=== PATIENT | male | born 1940 | race Caucasian/White ===

== ENCOUNTER → 2016-08-11 | Outpatient (CLI) | payer MEDICARE, BC | LOC: MW.CHENT 08:00 | PROVIDERS: ATTEND Otolaryngology | DX: H61.20 Impacted cerumen, unspecified ear (principal); H93.8X9 Other specified disorders of ear, unspecified ear | CPT/HCPCS: 69210; 99201 ==

== ENCOUNTER 2018-08-26 14:23 | Observation (INO) | payer MEDICARE, BC ==
[2018-08-26] MEDS ORDERED: Sodium Chloride 0.9% 10 ML Syringe FLUSH PRN (14:36)
[2018-08-26] MEDS ORDERED: Sodium Chloride 0.9% 2.5 ML Syringe FLUSH PRN (14:36)
[2018-08-26] MEDS ORDERED: Sodium Chloride 0.9% 1,000 ML IV SCH (14:45)
--- NOTE | 2018-08-26 14:46 | CT ---
EXAMINATION: Non contrast CT head. Coronal and sagittal reformats. HISTORY: Stroke code Comparison: 11/25/2013. FINDINGS: No evidence of intra or extra axial hemorrhage, mass, midline shift, hydrocephalus or edema. There is moderate to severe generalized atrophy and ventricular prominence. Prominent periventricular white matter hypodensities also noted. No hypoattenuation changes in the major vascular territories to suggest acute infarct. No abnormal intracranial calcifications are detected. Mild vascular calcifications. Paranasal sinuses and mastoid air cells are well aerated without substantial findings. Pituitary fossa appears unremarkable. Orbits and globes are symmetric. Calvarium is intact. No evidence of skull fracture. IMPRESSION: 1. Advanced atrophy, small vessel ischemic changes, and ventricular prominence. 2. No definite acute intracranial findings. Above findings were called to the ER at 2:43 PM.
--- NOTE | 2018-08-26 14:47 | EDM.PDOC ---
ED HPI GENERAL MEDICAL PROBLEM - General Chief Complaint: Neurological Problem Stated Complaint: AMB Time Seen by Provider: 08/26/18 14:28 - History of Present Illness INITIAL COMMENTS - FREE TEXT/NARRATIVE: HISTORY AND PHYSICAL: History of present illness: Patient is an 78-year-old white male who normally ambulates with a walker or has to use a wheelchair who presents today after having been sleeping somewhat longer than normal and then upon waking Ambien assisted to a wheelchair seem to be listing to the right face subsequently stood the patient up and assisted him with his walker and he was unable to ambulate in the usual customary due to balance issues. Patient states he felt dizzy this seems to have resolved since arrival here he did come via paramedics he denies chest pain chart of breath or other concern is history is somewhat limited due to his baseline Review of systems: As per history of present illness and below otherwise all systems reviewed and negative. Past medical history: As per history of present illness and as reviewed below otherwise noncontributory. Surgical history: As per history of present illness and as reviewed below otherwise noncontributory. Social history: No reported history of drug or alcohol abuse. Family history: As per history of present illness and as reviewed below otherwise noncontributory. Physical exam: HEENT: Atraumatic, normocephalic, pupils reactive, negative for conjunctival pallor or scleral icterus, mucous membranes moist, throat clear, neck supple, nontender, trachea midline. Lungs: Clear to auscultation, breath sounds equal bilaterally, chest nontender. Heart: S1S2, regular, negative for clicks, rubs, or JVD. Abdomen: Soft, nondistended, nontender. Negative for masses or hepatosplenomegaly. Negative for costovertebral tenderness. Pelvis: Stable nontender. Genitourinary: Deferred. Rectal: Deferred. Extremities: Atraumatic, negative for cords or calf pain. Neurovascular unremarkable. Neuro: Awake, alert, follows commands moves all extremities limited but grossly nonfocal exam Diagnostics: CBC CMP troponin PT/INR chest x-ray EKG CT brain UA [employer]rapeutics: IV O2 monitor Impression: #1 dizziness #2 ataxia Definitive disposition and diagnosis as appropriate pending reevaluation and review of above. - Related Data Allergies Allergy/AdvReac Type Severity Reaction Status Date / Time No Known Allergies Allergy Verified 08/26/18 14:43 Home Meds: Home Meds Acetaminophen [Tylenol Extra Strength] 500 mg PO Q4H PRN 08/26/18 [History] Aspirin [Halfprin] 81 mg PO DAILY 08/26/18 [History] Calcitonin ([place]) [Miacalcin Nasal [place]] 1 spray NASLF Q2D 08/26/18 [History] Calcitonin ([place]) [Miacalcin Nasal [place]] 1 spray NASRT Q2D 08/26/18 [History] Carboxymethylcellulose Sodium [Refresh Plus 0.5%] 1 drop EYEBOTH Q8H PRN [History] Furosemide 40 mg PO BID@08,12 08/26/18 [History] Isosorbide Mononitrate [Imdur] 30 mg PO DAILY 08/26/18 [History] Levothyroxine 25 mcg PO ACBREAKFAST 08/26/18 [History] Metoprolol Tartrate 75 mg PO BID 08/26/18 [History] Multivitamin [Daily [place]] 1 tab PO DAILY 08/26/18 [History] Tamsulosin [Flomax] 0.4 mg PO QPM 08/26/18 [History] atorvaSTATin [Lipitor] 10 mg PO BEDTIME 08/26/18 [History] metFORMIN [Glucophage] 250 mg PO BIDMEALS 08/26/18 [History] ED ROS GENERAL - Review of Systems Review Of Systems: ROS reveals no pertinent complaints other than HPI. ED EXAM, GENERAL - Physical Exam Exam: See Below (The dictation) Course - Vital Signs Last Recorded V/S: Last Vital Signs Temp 36.5 C 08/26/18 14:38 Pulse 67 08/26/18 15:45 Resp 24 H 08/26/18 15:45 BP 121/70 08/26/18 15:45 Pulse Ox 97 08/26/18 15:45 - Orders/Labs/Meds Orders: Active Orders 24 hr Category Date Time Status Cardiac Monitoring [RC] . DIRECTED Care 08/26/18 14:30 Active EKG Documentation Completion [RC] STAT Care 08/26/18 14:30 Active Pulse Oximetry [RC] ASDIRECTED Care 08/26/18 14:30 Active Sodium Chloride 0.9% [Normal Saline] 1,000 ml Med 08/26/18 14:45 Active IV STAT Sodium Chloride 0.9% [Saline Flush] Med 08/26/18 14:36 Active 10 ml FLUSH ASDIRECTED PRN Sodium Chloride 0.9% [Saline Flush] Med 08/26/18 14:36 Active 2.5 ml FLUSH ASDIRECTED PRN Saline Lock Insert [OM.PC] Stat Oth 08/26/18 14:30 Ordered Medication Orders Sodium Chloride (Normal Saline) 1,000 mls @ 125 mls/hr IV STAT AMI Last Admin: 08/26/18 15:14 Dose: 125 mls/hr Sodium Chloride (Saline Flush) 10 ml FLUSH ASDIRECTED PRN PRN Reason: Keep Vein Open Sodium Chloride (Saline Flush) 2.5 ml FLUSH ASDIRECTED PRN PRN Reason: Keep Vein Open Labs: Laboratory Tests 08/26/18 08/26/18 08/26/18 Range/Units 15:05 15:05 15:05 WBC 9.56 (4.0-11.0) K/uL RBC 4.44 L (4.50-5.90) M/uL Hgb 14.6 (13.0-17.0) g/dL Hct 43.3 (38.0-50.0) % MCV 97.5 (80.0-98.0) fL MCH 32.9 H (27.0-32.0) pg MCHC 33.7 (31.0-37.0) g/dL RDW Std Deviation 48.1 (28.0-62.0) fl RDW Coeff of Juanita 13 (11.0-15.0) % Plt Count 198 (150-400) K/uL MPV 9.90 (7.40-12.00) fL Neut % (Auto) 67.2 (48.0-80.0) % Lymph % (Auto) 20.2 (16.0-40.0) % [place] % (Auto) 11.5 (0.0-15.0) % Eos % (Auto) 0.8 (0.0-7.0) % Baso % (Auto) 0.3 (0.0-1.5) % Neut # (Auto) 6.4 H (1.4-5.7) K/uL Lymph # (Auto) 1.9 (0.6-2.4) K/uL [place] # (Auto) 1.1 H (0.0-0.8) K/uL Eos # (Auto) 0.1 (0.0-0.7) K/uL Baso # (Auto) 0.0 (0.0-0.1) K/uL Nucleated RBC % 0.0 /100WBC Nucleated RBCs # 0 K/uL INR 1.00 Sodium 140 (136-148) mmol/L Potassium 4.4 (3.5-5.1) mmol/L Chloride 105 (98-107) mmol/L Carbon Dioxide 26.2 (21.0-32.0) mmol/L BUN 26 H (7.0-18.0) mg/dL Creatinine 1.1 (0.8-1.3) mg/dL Est Cr Clr Drug Dosing 50.08 mL/min Estimated GFR (MDRD) > 60.0 ml/min Glucose 161 H (74-106) mg/dL Calcium 9.0 (8.5-10.1) mg/dL Total Bilirubin 0.6 (0.2-1.0) mg/dL AST 15 (15-37) IU/L ALT 26 (14-63) IU/L Alkaline Phosphatase 85 (46-116) U/L Troponin I < 0.050 (0.000-0.056) ng/mL Total Protein 7.5 (6.4-8.2) g/dL Albumin 3.3 L (3.4-5.0) g/dL Globulin 4.2 H (2.6-4.0) g/dL Albumin/Globulin Ratio 0.8 L (0.9-1.6) TSH 3rd Generation 4.22 H (0.36-3.74) uIU/mL Urine Color Urine Appearance Urine pH (5.0-8.0) Ur Specific [place] (1.001-1.035) Urine Protein (NEGATIVE) mg/dL Urine Glucose (UA) (NEGATIVE) mg/dL Urine Ketones (NEGATIVE) mg/dL Urine Occult Blood (NEGATIVE) Urine Nitrite (NEGATIVE) Urine Bilirubin (NEGATIVE) Urine Urobilinogen (<2.0) EU/dL Ur Leukocyte Esterase (NEGATIVE) 08/26/18 Range/Units 15:38 WBC (4.0-11.0) K/uL RBC (4.50-5.90) M/uL Hgb (13.0-17.0) g/dL Hct (38.0-50.0) % MCV (80.0-98.0) fL MCH (27.0-32.0) pg MCHC (31.0-37.0) g/dL RDW Std Deviation (28.0-62.0) fl RDW Coeff of [place]ita (11.0-15.0) % Plt Count (150-400) K/uL MPV (7.40-12.00) fL Neut % (Auto) (48.0-80.0) % Lymph % (Auto) (16.0-40.0) % [place] % (Auto) (0.0-15.0) % Eos % (Auto) (0.0-7.0) % Baso % (Auto) (0.0-1.5) % Neut # (Auto) (1.4-5.7) K/uL Lymph # (Auto) (0.6-2.4) K/uL [place] # (Auto) (0.0-0.8) K/uL Eos # (Auto) (0.0-0.7) K/uL Baso # (Auto) (0.0-0.1) K/uL Nucleated RBC % /100WBC Nucleated RBCs # K/uL INR Sodium (136-148) mmol/L Potassium (3.5-5.1) mmol/L Chloride (98-107) mmol/L Carbon Dioxide (21.0-32.0) mmol/L BUN (7.0-18.0) mg/dL Creatinine (0.8-1.3) mg/dL Est Cr Clr Drug Dosing mL/min Estimated GFR (MDRD) ml/min Glucose (74-106) mg/dL Calcium (8.5-10.1) mg/dL Total Bilirubin (0.2-1.0) mg/dL AST (15-37) IU/L ALT (14-63) IU/L Alkaline Phosphatase (46-116) U/L Troponin I (0.000-0.056) ng/mL Total Protein (6.4-8.2) g/dL Albumin (3.4-5.0) g/dL Globulin (2.6-4.0) g/dL Albumin/Globulin Ratio (0.9-1.6) TSH 3rd Generation (0.36-3.74) uIU/mL Urine Color YELLOW Urine Appearance CLEAR Urine pH 6.0 (5.0-8.0) Ur Specific [place] 1.020 (1.001-1.035) Urine Protein NEGATIVE (NEGATIVE) mg/dL Urine Glucose (UA) NEGATIVE (NEGATIVE) mg/dL Urine Ketones NEGATIVE (NEGATIVE) mg/dL Urine Occult Blood NEGATIVE (NEGATIVE) Urine Nitrite NEGATIVE (NEGATIVE) Urine Bilirubin NEGATIVE (NEGATIVE) Urine Urobilinogen 0.2 (<2.0) EU/dL Ur Leukocyte Esterase NEGATIVE (NEGATIVE) Meds: Medications Generic Name Dose Route Start Last Admin Trade Name Freq PRN Reason Stop Dose Admin Sodium Chloride 1,000 mls @ 125 mls/hr 08/26/18 14:45 08/26/18 15:14 Normal Saline IV 125 mls/hr STAT AMI Administration Sodium Chloride 10 ml 08/26/18 14:36 Saline Flush FLUSH ASDIRECTED PRN Keep Vein Open Sodium Chloride 2.5 ml 08/26/18 14:36 Saline Flush FLUSH ASDIRECTED PRN Keep Vein Open Departure - Departure Time of Disposition: 16:29 Disposition: Home, Self-Care 01 Condition: Good Clinical Impression: Dizziness - Discharge Information Referrals: PCP,Unknown [Primary Care Provider] - Forms: ED Department Discharge - My Orders Last 24 Hours: My Active Orders 08/26/18 14:30 Cardiac Monitoring [RC] . DIRECTED EKG Documentation Completion [RC] STAT Pulse Oximetry [RC] ASDIRECTED Saline Lock Insert [OM.PC] Stat 08/26/18 14:36 Sodium Chloride 0.9% [Saline Flush] 10 ml FLUSH ASDIRECTED PRN Sodium Chloride 0.9% [Saline Flush] 2.5 ml FLUSH ASDIRECTED PRN 08/26/18 14:45 Sodium Chloride 0.9% [Normal Saline] 1,000 ml IV STAT - Assessment/Plan Last 24 Hours: My Active Orders 08/26/18 14:30 Cardiac Monitoring [RC] . DIRECTED EKG Documentation Completion [RC] STAT Pulse Oximetry [RC] ASDIRECTED Saline Lock Insert [OM.PC] Stat 08/26/18 14:36 Sodium Chloride 0.9% [Saline Flush] 10 ml FLUSH ASDIRECTED PRN Sodium Chloride 0.9% [Saline Flush] 2.5 ml FLUSH ASDIRECTED PRN 08/26/18 14:45 Sodium Chloride 0.9% [Normal Saline] 1,000 ml IV STAT
--- NOTE | 2018-08-26 15:17 | CR ---
EXAMINATION: Portable chest radiograph. HISTORY: Shortness of breath. FINDINGS: The trachea is midline. The cardiomediastinal silhouette is within normal limits. No pulmonary infiltrates, effusions or pneumothorax. Mild interstitial prominence, chronic. Median sternotomy wires are noted. Osseous structures appear unremarkable. IMPRESSION: No definite acute cardiopulmonary process.
[2018-08-26 15:45] LABS: CHLORIDE,CL 105 mmol/L (98-107); SODIUM,NA 140 mmol/L (136-148)
[2018-08-26] MEDS ORDERED: oxyCODONE 5 MG Tab PO PRN (17:07)
[2018-08-26] MEDS ORDERED: Ondansetron 4 MG Tab.DIS PO PRN (17:07)
[2018-08-26] MEDS ORDERED: Acetaminophen 325 MG Tab PO PRN (17:07)
[2018-08-26] MEDS ORDERED: Temazepam 15 MG Cap PO PRN (17:07)
[2018-08-26] MEDS ORDERED: Calcitonin (Salmon) Nasal Spray 3.7 ML Bottle NAS SCH (17:15)
--- NOTE | 2018-08-26 17:17 | PCM.HP ---
H&P History of Present Illness - General Date of Service: 08/26/18 Admit Problem/Dx: Admission Diagnosis/Problem Admission Diagnosis/Problem Dizziness Source of Information: Patient, Family History Limitations: Reports: Altered Mental Status - History of Present Illness Initial Comments - Free Text/Narative: The patient is an 78-year-old gentleman who presented to the emergency department with his out of concern for dizziness and lightheadedness. The patient also had been noted by his to be listing to one side and was unable to ambulate in his usual fashion. The patient denies any fall. Patient says that this came on suddenly. The patient has denied any fever or chills. No pain. The patient normally uses a walker at home or wheelchair when out and about. The patient has a history of diabetes mellitus type 2, hypertension, hypothyroidism and heart disease. These of all been stable for him. Onset of Symptoms: Reports: Sudden Duration of Symptoms: Reports: Hour(s):, Resolved Prior to Arrival Severity: Mild Improves with: Reports: None Worsens with: Reports: None Context: Reports: Sick Contact Associated Symptoms: Reports: No Other Symptoms - Related Data Allergies/Adverse Reactions: Allergies Allergy/AdvReac Type Severity Reaction Status Date / Time No Known Allergies Allergy Verified 08/26/18 14:43 Home Medications: Home Meds Acetaminophen [Tylenol Extra Strength] 500 mg PO Q4H PRN 08/26/18 [History] Aspirin [Halfprin] 81 mg PO DAILY 08/26/18 [History] Calcitonin ([place]) [Miacalcin Nasal [place]] 1 spray NASLF Q2D 08/26/18 [History] Calcitonin ([place]) [Miacalcin Nasal [place]] 1 spray NASRT Q2D 08/26/18 [History] Carboxymethylcellulose Sodium [Refresh Plus 0.5%] 1 drop EYEBOTH Q8H PRN [History] Furosemide 40 mg PO BID@08,12 08/26/18 [History] Isosorbide Mononitrate [Imdur] 30 mg PO DAILY 08/26/18 [History] Levothyroxine 25 mcg PO ACBREAKFAST 08/26/18 [History] Metoprolol Tartrate 75 mg PO BID 08/26/18 [History] Multivitamin [Daily Jordy] 1 tab PO DAILY 08/26/18 [History] Tamsulosin [Flomax] 0.4 mg PO QPM 08/26/18 [History] atorvaSTATin [Lipitor] 10 mg PO BEDTIME 08/26/18 [History] metFORMIN [Glucophage] 250 mg PO BIDMEALS 08/26/18 [History] Past Medical History HEENT History: Reports: Hard of Hearing Cardiovascular History: Reports: CAD, High Cholesterol Respiratory History: Reports: None Gastrointestinal History: Reports: None Genitourinary History: Reports: Urinary Incontinence Musculoskeletal History: Reports: None Neurological History: Reports: Headaches, Chronic, Vertigo, Other (See Below) ( memory defects) Psychiatric History: Reports: None Endocrine/Metabolic History: Reports: Other (See Below) Other Endocrine/Metabolic History: Borderline Diabetic Hematologic History: Reports: None Immunologic History: Reports: None Dermatologic History: Reports: None - Past Surgical History HEENT Surgical History: Reports: Cataract Surgery Cardiovascular Surgical History: Reports: Coronary Artery Bypass Social & Family History - Family History Family Medical History: Noncontributory - Tobacco Use Smoking Status *Q: Never Smoker - Alcohol Use Alcohol Use History: No - Recreational Drug Use Recreational Drug Use: No - Living Situation & Occupation Living situation: Reports: , with Spouse Occupation: Retired H&P Review of Systems - Review of Systems: Review Of Systems: See Below General: Reports: Weakness HEENT: Reports: Vertigo Pulmonary: Reports: No Symptoms Cardiovascular: Reports: No Symptoms Gastrointestinal: Reports: No Symptoms Genitourinary: Reports: No Symptoms Musculoskeletal: Reports: No Symptoms Skin: Reports: No Symptoms Psychiatric: Reports: No Symptoms Neurological: Reports: Dizziness, Difficulty Walking, Weakness, Gait Disturbance Hematologic/Lymphatic: Reports: No Symptoms Immunologic: Reports: No Symptoms Exam - Exam Exam: See Below - Vital Signs Vital Signs: Last Vital Signs Temp 36.4 C 08/26/18 16:44 Pulse 65 08/26/18 16:44 Resp 22 H 08/26/18 16:44 BP 115/60 08/26/18 16:44 Pulse Ox 97 08/26/18 16:44 Weight: 85.275 kg - Exam Quality Assessment: No: Supplemental Oxygen General: Alert, Oriented, Cooperative HEENT: Conjunctiva Clear, EACs Clear, EOMI, Mucosa Moist & Walker, Nares Patent, Pupils Equal, PERRLA (No nystagmus) Neck: Supple, Trachea Midline Lungs: Clear to Auscultation, Normal Respiratory Effort Cardiovascular: Regular Rate, Regular Rhythm, Normal S1, Normal S2 GI/Abdominal Exam: Normal Bowel Sounds, Soft, Non-Tender, No Distention Back Exam: Normal Inspection, Full Range of Motion Extremities: Normal Inspection, Normal Range of Motion, No Pedal Edema Skin: Warm, Dry, Intact Neurological: Cranial Nerves Intact, Strength Equal Bilateral. No: Normal Gait (Wide-based gait) Neuro Extensive - Mental Status: Alert, Oriented x3 Psychiatric: Alert, Normal Affect, Normal Mood - Patient Data Lab Results Last 24 hrs: Laboratory Results - last 24 hr 08/26/18 08/26/18 08/26/18 Range/Units 15:05 15:05 15:05 WBC 9.56 (4.0-11.0) K/uL RBC 4.44 L (4.50-5.90) M/uL Hgb 14.6 (13.0-17.0) g/dL Hct 43.3 (38.0-50.0) % MCV 97.5 (80.0-98.0) fL MCH 32.9 H (27.0-32.0) pg MCHC 33.7 (31.0-37.0) g/dL RDW Std Deviation 48.1 (28.0-62.0) fl RDW Coeff of Juanita 13 (11.0-15.0) % Plt Count 198 (150-400) K/uL MPV 9.90 (7.40-12.00) fL Neut % (Auto) 67.2 (48.0-80.0) % Lymph % (Auto) 20.2 (16.0-40.0) % [place] % (Auto) 11.5 (0.0-15.0) % Eos % (Auto) 0.8 (0.0-7.0) % Baso % (Auto) 0.3 (0.0-1.5) % Neut # (Auto) 6.4 H (1.4-5.7) K/uL Lymph # (Auto) 1.9 (0.6-2.4) K/uL Ramsey # (Auto) 1.1 H (0.0-0.8) K/uL Eos # (Auto) 0.1 (0.0-0.7) K/uL Baso # (Auto) 0.0 (0.0-0.1) K/uL Nucleated RBC % 0.0 /100WBC Nucleated RBCs # 0 K/uL INR 1.00 Sodium 140 (136-148) mmol/L Potassium 4.4 (3.5-5.1) mmol/L Chloride 105 (98-107) mmol/L Carbon Dioxide 26.2 (21.0-32.0) mmol/L BUN 26 H (7.0-18.0) mg/dL Creatinine 1.1 (0.8-1.3) mg/dL Est Cr Clr Drug Dosing 50.08 mL/min Estimated GFR (MDRD) > 60.0 ml/min Glucose 161 H (74-106) mg/dL Calcium 9.0 (8.5-10.1) mg/dL Total Bilirubin 0.6 (0.2-1.0) mg/dL AST 15 (15-37) IU/L ALT 26 (14-63) IU/L Alkaline Phosphatase 85 (46-116) U/L Troponin I < 0.050 (0.000-0.056) ng/mL Total Protein 7.5 (6.4-8.2) g/dL Albumin 3.3 L (3.4-5.0) g/dL Globulin 4.2 H (2.6-4.0) g/dL Albumin/Globulin Ratio 0.8 L (0.9-1.6) TSH 3rd Generation 4.22 H (0.36-3.74) uIU/mL Urine Color Urine Appearance Urine pH (5.0-8.0) Ur Specific [place] (1.001-1.035) Urine Protein (NEGATIVE) mg/dL Urine Glucose (UA) (NEGATIVE) mg/dL Urine Ketones (NEGATIVE) mg/dL Urine Occult Blood (NEGATIVE) Urine Nitrite (NEGATIVE) Urine Bilirubin (NEGATIVE) Urine Urobilinogen (<2.0) EU/dL Ur Leukocyte Esterase (NEGATIVE) 08/26/18 Range/Units 15:38 WBC (4.0-11.0) K/uL RBC (4.50-5.90) M/uL Hgb (13.0-17.0) g/dL Hct (38.0-50.0) % MCV (80.0-98.0) fL MCH (27.0-32.0) pg MCHC (31.0-37.0) g/dL RDW Std Deviation (28.0-62.0) fl RDW Coeff of Juanita (11.0-15.0) % Plt Count (150-400) K/uL MPV (7.40-12.00) fL Neut % (Auto) (48.0-80.0) % Lymph % (Auto) (16.0-40.0) % [place] % (Auto) (0.0-15.0) % Eos % (Auto) (0.0-7.0) % Baso % (Auto) (0.0-1.5) % Neut # (Auto) (1.4-5.7) K/uL Lymph # (Auto) (0.6-2.4) K/uL [place] # (Auto) (0.0-0.8) K/uL Eos # (Auto) (0.0-0.7) K/uL Baso # (Auto) (0.0-0.1) K/uL Nucleated RBC % /100WBC Nucleated RBCs # K/uL INR Sodium (136-148) mmol/L Potassium (3.5-5.1) mmol/L Chloride (98-107) mmol/L Carbon Dioxide (21.0-32.0) mmol/L BUN (7.0-18.0) mg/dL Creatinine (0.8-1.3) mg/dL Est Cr Clr Drug Dosing mL/min Estimated GFR (MDRD) ml/min Glucose (74-106) mg/dL Calcium (8.5-10.1) mg/dL Total Bilirubin (0.2-1.0) mg/dL AST (15-37) IU/L ALT (14-63) IU/L Alkaline Phosphatase (46-116) U/L Troponin I (0.000-0.056) ng/mL Total Protein (6.4-8.2) g/dL Albumin (3.4-5.0) g/dL Globulin (2.6-4.0) g/dL Albumin/Globulin Ratio (0.9-1.6) TSH 3rd Generation (0.36-3.74) uIU/mL Urine Color YELLOW Urine Appearance CLEAR Urine pH 6.0 (5.0-8.0) Ur Specific [place] 1.020 (1.001-1.035) Urine Protein NEGATIVE (NEGATIVE) mg/dL Urine Glucose (UA) NEGATIVE (NEGATIVE) mg/dL Urine Ketones NEGATIVE (NEGATIVE) mg/dL Urine Occult Blood NEGATIVE (NEGATIVE) Urine Nitrite NEGATIVE (NEGATIVE) Urine Bilirubin NEGATIVE (NEGATIVE) Urine Urobilinogen 0.2 (<2.0) EU/dL Ur Leukocyte Esterase NEGATIVE (NEGATIVE) Result Diagrams: 08/27/18 05:07 08/27/18 05:07 - Problem List (1) Dizziness SNOMED Code(s): 503404967, 835016514 ICD Code: R42 - DIZZINESS AND GIDDINESS Status: Acute Priority: High Current Visit: Yes (2) Poor tolerance for ambulation SNOMED Code(s): 826477885 ICD Code: Z78.9 - OTHER SPECIFIED HEALTH STATUS Status: Chronic Priority : Medium Current Visit: Yes (3) Coronary artery disease SNOMED Code(s): 85380995 ICD Code: I25.10 - ATHSCL HEART DISEASE OF [place] CORONARY ARTERY W/O ANG PCTRS Status: Chronic Priority: High Current Visit: Yes Qualifiers: Coronary Disease-Associated Artery/Lesion type: [place] artery [place] vs. transplanted heart: [place] heart Associated angina: without angina Qualified Code(s): I25.10 - Atherosclerotic heart disease of [place] coronary artery without angina pectoris (4) Hypertension SNOMED Code(s): 45272103 ICD Code: I10 - ESSENTIAL (PRIMARY) HYPERTENSION Status: Chronic Priority : Medium Current Visit: Yes Qualifiers: Hypertension type: essential hypertension Qualified Code(s): I10 - Essential (primary) hypertension (5) Diabetes type 2, controlled SNOMED Code(s): 19994697, 424629971 ICD Code: E11.9 - TYPE 2 DIABETES MELLITUS WITHOUT COMPLICATIONS Status: Chronic Priority: High Current Visit: Yes Qualifiers: Diabetes mellitus snf insulin use: without intermodal customer service use Diabetes mellitus complication status: without complication Qualified Code(s): E11.9 - Type 2 diabetes mellitus without complications Problem List Initiated/Reviewed/Updated: Yes Orders Last 24hrs: Active Orders 24 hr Category Date Time Status Patient Status [ADT] Stat ADT 08/26/18 16:32 Active Blood Glucose Check, Bedside [RC] TIDMEALS Care 08/26/18 17:07 Ordered Cardiac Monitoring [RC] . DIRECTED Care 08/26/18 14:30 Active Cardiac Monitoring [RC] CONTINUOUS Care 08/26/18 17:10 Ordered Diabetes Education [RC] Click to Edit Care 08/26/18 17:11 Ordered EKG Documentation Completion [RC] STAT Care 08/26/18 14:30 Active Oxygen Therapy [RC] PRN Care 08/26/18 17:07 Ordered Pulse Oximetry [RC] ASDIRECTED Care 08/26/18 14:30 Active Up With Assistance [RC] ASDIRECTED Care 08/26/18 17:07 Ordered VTE/DVT Education [RC] PER UNIT ROUTINE Care 08/26/18 17:07 Ordered Vital Signs [RC] Q4H Care 08/26/18 17:07 Ordered OT Evaluation and Treatment [CONS] Routine Cons 08/26/18 17:07 Ordered PT Evaluation and Treatment [CONS] Routine Cons 08/26/18 17:07 Ordered [employer] Diet [DIET] Diet 08/26/18 Breakfast Ordered BASIC METABOLIC PANEL,BMP [CHEM] AM Lab 08/27/18 05:11 Ordered CBC WITH AUTO DIFF [HEME] AM Lab 08/27/18 05:11 Ordered Acetaminophen [Tylenol] Med 08/26/18 17:07 Ordered 650 mg PO Q4H PRN Calcitonin ([place]) [Miacalcin Nasal [place]] Med 08/26/18 17:15 Ordered 1 spray LISA Q2D Carboxymethylcellulose Sodium [Refresh Plus 0.5%] Med 08/26/18 17:05 Ordered 1 drop EYEBOTH Q8H PRN Enoxaparin [Lovenox] Med 08/26/18 17:15 Ordered 30 mg SUBCUT Q24H Furosemide [Lasix] Med 08/27/18 08:00 Ordered 40 mg PO BID@08,12 Insulin Aspart [NovoLOG] Med 08/27/18 07:30 Ordered See Protocol SUBCUT TIDAC Isosorbide Mononitrate [Imdur] Med 08/27/18 09:00 Ordered 30 mg PO DAILY Levothyroxine Med 08/27/18 07:30 Ordered 25 mcg PO ACBREAKFAST Metoprolol Tartrate [Lopressor] Med 08/26/18 21:00 Ordered 75 mg PO BID Ondansetron [Zofran ODT] Med 08/26/18 17:07 Ordered 4 mg PO Q4H PRN Sodium Chloride 0.9% [Normal Saline] 1,000 ml Med 08/26/18 17:15 Ordered IV ASDIRECTED Sodium Chloride 0.9% [Normal Saline] 1,000 ml Med 08/26/18 14:45 Active IV STAT Sodium Chloride 0.9% [Saline Flush] Med 08/26/18 14:36 Active 10 ml FLUSH ASDIRECTED PRN Sodium Chloride 0.9% [Saline Flush] Med 08/26/18 14:36 Active 2.5 ml FLUSH ASDIRECTED PRN Tamsulosin [Flomax] Med 08/26/18 18:00 Ordered 0.4 mg PO QPM Temazepam [Restoril] Med 08/26/18 17:07 Ordered 15 mg PO BEDTIME PRN metFORMIN [Glucophage] Med 08/27/18 08:00 Ordered 250 mg PO BIDMEALS oxyCODONE Med 08/26/18 17:07 Ordered 5 mg PO Q4H PRN Glucose Management Sub Q Reflex [OM.PC] Click To Edit Oth 08/26/18 17:07 Ordered Saline Lock Insert [OM.PC] Stat Oth 08/26/18 14:30 Ordered Resuscitation Status Routine Resus Stat 08/26/18 17:07 Ordered Medication Orders Acetaminophen (Tylenol) 650 mg PO Q4H PRN PRN Reason: Pain (Mild 1-3)/fever Artificial Tears (Refresh Plus 0.5%) 1 each EYEBOTH Q8H PRN PRN Reason: Dry Eyes Calcitonin [place] (Miacalcin Nasal [place]) 3.7 ml LISA Q2D AMI Enoxaparin Sodium (Lovenox) 30 mg SUBCUT Q24H AMI Furosemide (Lasix) 40 mg PO BID@0800,1200 AMI Sodium Chloride (Normal Saline) 1,000 mls @ 125 mls/hr IV STAT AMI Last Admin: 08/26/18 15:14 Dose: 125 mls/hr Sodium Chloride (Normal Saline) 1,000 mls @ 50 mls/hr IV ASDIRECTED [facility] Insulin Aspart (Novolog) 0 unit SUBCUT TIDAC AMI; Protocol Isosorbide Mononitrate (Imdur) 30 mg PO DAILY [facility] Levothyroxine Sodium (Levothyroxine) 25 mcg PO ACBREAKFAST [facility] Metformin HCl (Glucophage) 250 mg PO BIDMEALS [facility] Metoprolol Tartrate (Lopressor) 75 mg PO BID AMI Ondansetron HCl (Zofran Odt) 4 mg PO Q4H PRN PRN Reason: nausea, able to take PO Oxycodone HCl (Oxycodone) 5 mg PO Q4H PRN PRN Reason: Pain (moderate 4-6) Sodium Chloride (Saline Flush) 10 ml FLUSH ASDIRECTED PRN PRN Reason: Keep Vein Open Sodium Chloride (Saline Flush) 2.5 ml FLUSH ASDIRECTED PRN PRN Reason: Keep Vein Open Tamsulosin HCl (Flomax) 0.4 mg PO QPM AMI Temazepam (Restoril) 15 mg PO BEDTIME PRN PRN Reason: Sleep Assessment/Plan Comment:: The patient is an 78-year-old gentleman who will be admitted to observation secondary to his dizziness. At this time it appears like benign positional vertigo. The patient has multiple medical problems each of which can contribute to the patient's dizziness and vertigo. The patient will be ordered to have PT OT to assess for vestibular conditions. The patient will also be kept on appropriate ADA diet. He be on insulin sliding scale as necessary. Insulin sliding scale at low dose. The patient will also have Accu-Cheks before meals and at bedtime. I've also ordered repeat laboratory studies. The patient will also be kept on his hypertensive medications and this will be monitored with his medications adjusted as needed. Patient also be kept on his isosorbide for his artery disease. The patient should be appropriate for discharge in 1-2 days depending upon his symptoms. Patient is also in a DO NOT INTUBATE/DO NOT RESUSCITATE category and his wishes will be honored.
[2018-08-26] MEDS: Enoxaparin 30 MG/0.3 ML Syringe SUBCUT SCH (18:29)
[2018-08-26] MEDS: Tamsulosin 0.4 MG Cap.ER PO SCH (18:31)
[2018-08-26] MEDS ORDERED: Metoprolol Tartrate 50 MG Tab PO SCH (21:00)
[2018-08-27] MEDS: Sodium Chloride 0.9% 1,000 ML IV SCH (05:08)
[2018-08-27 05:54] LABS: CHLORIDE,CL 107 mmol/L (98-107); SODIUM,NA 142 mmol/L (136-148)
[2018-08-27] MEDS ORDERED: Meclizine 25 MG Tab PO ONE (07:13)
[2018-08-27] MEDS: Insulin Aspart 100 Units/ML 3 ML Pen SUBCUT SCH ×3 (07:36→18:05)
[2018-08-27] MEDS: Levothyroxine 25 MCG Tab PO SCH (07:36)
[2018-08-27] MEDS: metFORMIN 500 MG Tab PO SCH ×2 (08:16→17:56)
[2018-08-27] MEDS: Isosorbide Mononitrate 30 MG Tab.ER PO SCH (08:17)
[2018-08-27] MEDS: Furosemide 40 MG Tab PO SCH ×2 (08:17→12:20)
--- NOTE | 2018-08-27 10:50 | PCM.PN ---
- General Info Date of Service: 08/27/18 Admission Dx/Problem (Free Text): Admission Diagnosis/Problem Admission Diagnosis/Problem Dizziness Subjective Update: The patient is an 78-year-old gentleman who presented to the emergency department and was admitted secondary to lightheadedness and dizziness along with loss of balance. PTOT was ordered for the patient. The patient says that he is doing somewhat better today. He has poor short-term memory issues. He has no complaints this morning. Functional Status: Reports: Pain Controlled - Review of Systems General: Reports: No Symptoms HEENT: Reports: No Symptoms Pulmonary: Reports: No Symptoms Cardiovascular: Reports: No Symptoms Gastrointestinal: Reports: No Symptoms Genitourinary: Reports: No Symptoms Musculoskeletal: Reports: No Symptoms Skin: Reports: No Symptoms Neurological: Reports: Dizziness, Pre-Existing Deficit, Difficulty Walking Psychiatric: Reports: No Symptoms - Patient Data Vitals - Most Recent: Last Vital Signs Temp 36.9 C 08/27/18 07:33 Pulse 94 08/27/18 07:33 Resp 24 H 08/27/18 07:33 BP 118/66 08/27/18 08:17 Pulse Ox 96 08/27/18 07:33 Weight - Most Recent: 85.275 kg I&O - Last 24 Hours: Intake & Output 08/26/18 08/27/18 08/27/18 22:59 06:59 14:59 Intake Total 450 120 Output Total 224 Balance 226 120 Lab Results Last 24 Hours: Laboratory Results - last 24 hr 08/26/18 08/26/18 08/26/18 Range/Units 15:05 15:05 15:05 WBC 9.56 (4.0-11.0) K/uL RBC 4.44 L (4.50-5.90) M/uL Hgb 14.6 (13.0-17.0) g/dL Hct 43.3 (38.0-50.0) % MCV 97.5 (80.0-98.0) fL MCH 32.9 H (27.0-32.0) pg MCHC 33.7 (31.0-37.0) g/dL RDW Std Deviation 48.1 (28.0-62.0) fl RDW Coeff of Juanita 13 (11.0-15.0) % Plt Count 198 (150-400) K/uL MPV 9.90 (7.40-12.00) fL Neut % (Auto) 67.2 (48.0-80.0) % Lymph % (Auto) 20.2 (16.0-40.0) % Power % (Auto) 11.5 (0.0-15.0) % Eos % (Auto) 0.8 (0.0-7.0) % Baso % (Auto) 0.3 (0.0-1.5) % Neut # (Auto) 6.4 H (1.4-5.7) K/uL Lymph # (Auto) 1.9 (0.6-2.4) K/uL Power # (Auto) 1.1 H (0.0-0.8) K/uL Eos # (Auto) 0.1 (0.0-0.7) K/uL Baso # (Auto) 0.0 (0.0-0.1) K/uL Nucleated RBC % 0.0 /100WBC Nucleated RBCs # 0 K/uL INR 1.00 Sodium 140 (136-148) mmol/L Potassium 4.4 (3.5-5.1) mmol/L Chloride 105 (98-107) mmol/L Carbon Dioxide 26.2 (21.0-32.0) mmol/L BUN 26 H (7.0-18.0) mg/dL Creatinine 1.1 (0.8-1.3) mg/dL Est Cr Clr Drug Dosing 50.08 mL/min Estimated GFR (MDRD) > 60.0 ml/min Glucose 161 H (74-106) mg/dL POC Glucose (60-110) mg/dL Calcium 9.0 (8.5-10.1) mg/dL Total Bilirubin 0.6 (0.2-1.0) mg/dL AST 15 (15-37) IU/L ALT 26 (14-63) IU/L Alkaline Phosphatase 85 (46-116) U/L Troponin I < 0.050 (0.000-0.056) ng/mL Total Protein 7.5 (6.4-8.2) g/dL Albumin 3.3 L (3.4-5.0) g/dL Globulin 4.2 H (2.6-4.0) g/dL Albumin/Globulin Ratio 0.8 L (0.9-1.6) TSH 3rd Generation 4.22 H (0.36-3.74) uIU/mL Urine Color Urine Appearance Urine pH (5.0-8.0) Ur Specific [place] (1.001-1.035) Urine Protein (NEGATIVE) mg/dL Urine Glucose (UA) (NEGATIVE) mg/dL Urine Ketones (NEGATIVE) mg/dL Urine Occult Blood (NEGATIVE) Urine Nitrite (NEGATIVE) Urine Bilirubin (NEGATIVE) Urine Urobilinogen (<2.0) EU/dL Ur Leukocyte Esterase (NEGATIVE) 08/26/18 08/27/18 08/27/18 Range/Units 15:38 05:07 05:07 WBC 8.30 (4.0-11.0) K/uL RBC 4.04 L (4.50-5.90) M/uL Hgb 13.1 (13.0-17.0) g/dL Hct 39.4 (38.0-50.0) % MCV 97.5 (80.0-98.0) fL MCH 32.4 H (27.0-32.0) pg MCHC 33.2 (31.0-37.0) g/dL RDW Std Deviation 48.6 (28.0-62.0) fl RDW Coeff of Juanita 14 (11.0-15.0) % Plt Count 198 (150-400) K/uL MPV 10.10 (7.40-12.00) fL Neut % (Auto) 57.4 (48.0-80.0) % Lymph % (Auto) 27.3 (16.0-40.0) % Power % (Auto) 11.9 (0.0-15.0) % Eos % (Auto) 2.8 (0.0-7.0) % Baso % (Auto) 0.6 (0.0-1.5) % Neut # (Auto) 4.8 (1.4-5.7) K/uL Lymph # (Auto) 2.3 (0.6-2.4) K/uL Power # (Auto) 1.0 H (0.0-0.8) K/uL Eos # (Auto) 0.2 (0.0-0.7) K/uL Baso # (Auto) 0.1 (0.0-0.1) K/uL Nucleated RBC % 0.0 /100WBC Nucleated RBCs # 0 K/uL INR Sodium 142 (136-148) mmol/L Potassium 3.7 (3.5-5.1) mmol/L Chloride 107 (98-107) mmol/L Carbon Dioxide 23.6 (21.0-32.0) mmol/L BUN 22 H (7.0-18.0) mg/dL Creatinine 1.0 (0.8-1.3) mg/dL Est Cr Clr Drug Dosing 55.08 mL/min Estimated GFR (MDRD) > 60.0 ml/min Glucose 102 (74-106) mg/dL POC Glucose (60-110) mg/dL Calcium 8.5 (8.5-10.1) mg/dL Total Bilirubin (0.2-1.0) mg/dL AST (15-37) IU/L ALT (14-63) IU/L Alkaline Phosphatase (46-116) U/L Troponin I (0.000-0.056) ng/mL Total Protein (6.4-8.2) g/dL Albumin (3.4-5.0) g/dL Globulin (2.6-4.0) g/dL Albumin/Globulin Ratio (0.9-1.6) TSH 3rd Generation (0.36-3.74) uIU/mL Urine Color YELLOW Urine Appearance CLEAR Urine pH 6.0 (5.0-8.0) Ur Specific [place] 1.020 (1.001-1.035) Urine Protein NEGATIVE (NEGATIVE) mg/dL Urine Glucose (UA) NEGATIVE (NEGATIVE) mg/dL Urine Ketones NEGATIVE (NEGATIVE) mg/dL Urine Occult Blood NEGATIVE (NEGATIVE) Urine Nitrite NEGATIVE (NEGATIVE) Urine Bilirubin NEGATIVE (NEGATIVE) Urine Urobilinogen 0.2 (<2.0) EU/dL Ur Leukocyte Esterase NEGATIVE (NEGATIVE) 08/27/18 Range/Units 06:29 WBC (4.0-11.0) K/uL RBC (4.50-5.90) M/uL Hgb (13.0-17.0) g/dL Hct (38.0-50.0) % MCV (80.0-98.0) fL MCH (27.0-32.0) pg MCHC (31.0-37.0) g/dL RDW Std Deviation (28.0-62.0) fl RDW Coeff of Juanita (11.0-15.0) % Plt Count (150-400) K/uL MPV (7.40-12.00) fL Neut % (Auto) (48.0-80.0) % Lymph % (Auto) (16.0-40.0) % Power % (Auto) (0.0-15.0) % Eos % (Auto) (0.0-7.0) % Baso % (Auto) (0.0-1.5) % Neut # (Auto) (1.4-5.7) K/uL Lymph # (Auto) (0.6-2.4) K/uL Power # (Auto) (0.0-0.8) K/uL Eos # (Auto) (0.0-0.7) K/uL Baso # (Auto) (0.0-0.1) K/uL Nucleated RBC % /100WBC Nucleated RBCs # K/uL INR Sodium (136-148) mmol/L Potassium (3.5-5.1) mmol/L Chloride (98-107) mmol/L Carbon Dioxide (21.0-32.0) mmol/L BUN (7.0-18.0) mg/dL Creatinine (0.8-1.3) mg/dL Est Cr Clr Drug Dosing mL/min Estimated GFR (MDRD) ml/min Glucose (74-106) mg/dL POC Glucose 103 (60-110) mg/dL Calcium (8.5-10.1) mg/dL Total Bilirubin (0.2-1.0) mg/dL AST (15-37) IU/L ALT (14-63) IU/L Alkaline Phosphatase (46-116) U/L Troponin I (0.000-0.056) ng/mL Total Protein (6.4-8.2) g/dL Albumin (3.4-5.0) g/dL Globulin (2.6-4.0) g/dL Albumin/Globulin Ratio (0.9-1.6) TSH 3rd Generation (0.36-3.74) uIU/mL Urine Color Urine Appearance Urine pH (5.0-8.0) Ur Specific [place] (1.001-1.035) Urine Protein (NEGATIVE) mg/dL Urine Glucose (UA) (NEGATIVE) mg/dL Urine Ketones (NEGATIVE) mg/dL Urine Occult Blood (NEGATIVE) Urine Nitrite (NEGATIVE) Urine Bilirubin (NEGATIVE) Urine Urobilinogen (<2.0) EU/dL Ur Leukocyte Esterase (NEGATIVE) Med Orders - Current: Current Medications Acetaminophen (Tylenol) 650 mg PO Q4H PRN PRN Reason: Pain (Mild 1-3)/fever Artificial Tears (Refresh Plus 0.5%) 1 each EYEBOTH Q8H PRN PRN Reason: Dry Eyes Calcitonin [place] (Miacalcin Nasal [place]) 3.7 ml LISA Q2D [facility] Last Admin: 08/26/18 18:24 Dose: Not Given Enoxaparin Sodium (Lovenox) 30 mg SUBCUT Q24H [facility] Last Admin: 08/26/18 18:29 Dose: 30 mg Furosemide (Lasix) 40 mg PO BID@0800,1200 [facility] Last Admin: 08/27/18 08:17 Dose: 40 mg Sodium Chloride (Normal Saline) 1,000 mls @ 50 mls/hr IV ASDIRECTED [facility] Last Admin: 08/27/18 05:08 Dose: 50 mls/hr Insulin Aspart (Novolog) 0 unit SUBCUT TIDAC [facility]; Protocol Last Admin: 08/27/18 07:36 Dose: Not Given Isosorbide Mononitrate (Imdur) 30 mg PO DAILY [facility] Last Admin: 08/27/18 08:17 Dose: 30 mg Levothyroxine Sodium (Levothyroxine) 25 mcg PO ACBREAKFAST [facility] Last Admin: 08/27/18 07:36 Dose: 25 mcg Metformin HCl (Glucophage) 250 mg PO BIDMEALS [facility] Last Admin: 08/27/18 08:16 Dose: 250 mg Metoprolol Tartrate (Lopressor) 75 mg PO 0730,1700 [facility] Ondansetron HCl (Zofran Odt) 4 mg PO Q4H PRN PRN Reason: nausea, able to take PO Oxycodone HCl (Oxycodone) 5 mg PO Q4H PRN PRN Reason: Pain (moderate 4-6) Sodium Chloride (Saline Flush) 10 ml FLUSH ASDIRECTED PRN PRN Reason: Keep Vein Open Sodium Chloride (Saline Flush) 2.5 ml FLUSH ASDIRECTED PRN PRN Reason: Keep Vein Open Tamsulosin HCl (Flomax) 0.4 mg PO QPM [facility] Last Admin: 08/26/18 18:31 Dose: 0.4 mg Temazepam (Restoril) 15 mg PO BEDTIME PRN PRN Reason: Sleep Discontinued Medications Sodium Chloride (Normal Saline) 1,000 mls @ 125 mls/hr IV STAT [facility] Last Infusion: 08/26/18 18:26 Dose: 50 mls/hr Meclizine HCl (Antivert) 25 mg PO ONETIME ONE Stop: 08/27/18 07:14 Last Admin: 08/27/18 08:16 Dose: 25 mg Metoprolol Tartrate (Lopressor) 75 mg PO BID [facility] Last Admin: 08/26/18 21:43 Dose: Not Given - Exam Quality Assessment: No: Supplemental Oxygen General: Alert, Oriented, Cooperative, No Acute Distress HEENT: Pupils Equal, Pupils Reactive, EOMI (No nystagmus), Mucous Membr. Moist/ [place] Neck: Supple, Trachea Midline Lungs: Clear to Auscultation, Normal Respiratory Effort Cardiovascular: Regular Rate, Regular Rhythm GI/Abdominal Exam: Normal Bowel Sounds, Soft, Non-Tender, No Distention Back Exam: Normal Inspection (Age appropriate), Full Range of Motion Extremities: Normal Inspection, Normal Range of Motion (Age appropriate), No Pedal Edema Skin: Warm, Dry, Intact Neurological: No New Focal Deficit Psy/Mental Status: Alert, Normal Affect, Normal Mood - Problem List & Annotations (1) Dizziness SNOMED Code(s): 488503369, 710958367 Code(s): R42 - DIZZINESS AND GIDDINESS Status: Acute Priority: High Current Visit: Yes (2) Poor tolerance for ambulation SNOMED Code(s): 806550775 Code(s): Z78.9 - OTHER SPECIFIED HEALTH STATUS Status: Chronic Priority: Medium Current Visit: Yes (3) Coronary artery disease SNOMED Code(s): 85049614 Code(s): I25.10 - ATHSCL HEART DISEASE OF [place] CORONARY ARTERY W/O ANG PCTRS Status: Chronic Priority: High Current Visit: Yes Qualifiers: Coronary Disease-Associated Artery/Lesion type: [place] artery [place] vs. transplanted heart: [place] heart Associated angina: without angina Qualified Code(s): I25.10 - Atherosclerotic heart disease of [place] coronary artery without angina pectoris (4) Hypertension SNOMED Code(s): 63569987 Code(s): I10 - ESSENTIAL (PRIMARY) HYPERTENSION Status: Chronic Priority : Medium Current Visit: Yes Qualifiers: Hypertension type: essential hypertension Qualified Code(s): I10 - Essential (primary) hypertension (5) Diabetes type 2, controlled SNOMED Code(s): 55198196, 943061672 Code(s): E11.9 - TYPE 2 DIABETES MELLITUS WITHOUT COMPLICATIONS Status: Chronic Priority: High Current Visit: Yes Qualifiers: Diabetes mellitus retirement insulin use: without intermediate frame tender use Diabetes mellitus complication status: without complication Qualified Code(s): E11.9 - Type 2 diabetes mellitus without complications - Problem List Review Problem List Initiated/Reviewed/Updated: Yes - My Orders Last 24 Hours: My Active Orders 08/26/18 17:03 Telemetry Monitoring [Cardiac Monitoring] [RC] Q8H 08/26/18 17:05 Carboxymethylcellulose Sodium [Refresh Plus 0.5%] 1 each EYEBOTH Q8H PRN 08/26/18 17:07 Blood Glucose Check, Bedside [RC] TIDMEALS Oxygen Therapy [RC] PRN Up With Assistance [RC] ASDIRECTED VTE/DVT Education [RC] PER UNIT ROUTINE Vital Signs [RC] Q4H OT Evaluation and Treatment [CONS] Routine PT Evaluation and Treatment [CONS] Routine Acetaminophen [Tylenol] 650 mg PO Q4H PRN Ondansetron [Zofran ODT] 4 mg PO Q4H PRN Temazepam [Restoril] 15 mg PO BEDTIME PRN oxyCODONE 5 mg PO Q4H PRN Glucose Management Sub Q Reflex [OM.PC] Click To Edit Resuscitation Status Routine 08/26/18 17:10 Cardiac Monitoring [RC] CONTINUOUS 08/26/18 17:11 Diabetes Education [RC] Click to Edit 08/26/18 17:15 Calcitonin (Jewell) [Miacalcin Nasal [place]] 3.7 ml LISA Q2D Enoxaparin [Lovenox] 30 mg SUBCUT Q24H Sodium Chloride 0.9% [Normal Saline] 1,000 ml IV ASDIRECTED 08/26/18 18:00 Tamsulosin [Flomax] 0.4 mg PO QPM 08/27/18 07:30 Insulin Aspart [NovoLOG] See Protocol SUBCUT TIDAC Levothyroxine 25 mcg PO ACBREAKFAST Metoprolol Tartrate [Lopressor] 75 mg PO 0730,1700 08/27/18 08:00 Furosemide [Lasix] 40 mg PO BID@0800,1200 metFORMIN [Glucophage] 250 mg PO BIDMEALS 08/27/18 09:00 Isosorbide Mononitrate [Imdur] 30 mg PO DAILY - Plan Plan:: Was admitted primarily out of concern for dizziness and lightheadedness along with ataxia. Physical therapy will evaluate the patient for vestibular symptoms. Patient had been started on meclizine and this seems to help. The patient will also be kept on appropriate ADA diet. The patient will also have Accu-Cheks before meals and at bedtime. I've ordered repeat laboratory studies in the morning. Patient will also be monitored. He is also on his home medications for his heart disease. The patient should be appropriate for discharge after evaluation in 1-2 days.
[2018-08-27] MEDS: Metoprolol Tartrate 50 MG Tab PO SCH ×3 (12:15→19:39)
[2018-08-27] MEDS: Tamsulosin 0.4 MG Cap.ER PO SCH (17:57)
[2018-08-27] MEDS: Enoxaparin 30 MG/0.3 ML Syringe SUBCUT SCH (17:58)
[2018-08-27] MEDS: Carboxymethylcellulose Sodium 0.5% Ophth Soln 0.4 ML UD Box of 30 EYEBOTH PRN (20:30)
[2018-08-28] MEDS: Sodium Chloride 0.9% 1,000 ML IV SCH (00:40)
[2018-08-28] MEDS: Levothyroxine 25 MCG Tab PO SCH (06:33)
[2018-08-28] MEDS: Insulin Aspart 100 Units/ML 3 ML Pen SUBCUT SCH ×2 (06:34→13:17)
[2018-08-28] MEDS: Metoprolol Tartrate 50 MG Tab PO SCH (08:38)
[2018-08-28] MEDS: metFORMIN 500 MG Tab PO SCH (08:39)
[2018-08-28] MEDS: Furosemide 40 MG Tab PO SCH ×2 (08:39→13:29)
[2018-08-28] MEDS: Isosorbide Mononitrate 30 MG Tab.ER PO SCH (08:39)
[2018-08-28] MEDS: Carboxymethylcellulose Sodium 0.5% Ophth Soln 0.4 ML UD Box of 30 EYEBOTH PRN (08:40)
--- NOTE | 2018-08-28 08:44 | PCM.DCSUM1 ---
Discharge Summary - Hospital Course HPI Initial Comments: The patient is an 78-year-old gentleman who was admitted out of concern for dizziness as well as poor ambulation with difficulty standing straight. Diagnosis: Stroke: No - Discharge Data Discharge Date: 08/28/18 Discharge Disposition: Home, W Home Health Agency 06 Condition: Fair - Discharge Diagnosis/Problem(s) (1) Dizziness SNOMED Code(s): 301466784, 784101363 ICD Code: R42 - DIZZINESS AND GIDDINESS Status: Acute Priority: High Current Visit: Yes (2) Poor tolerance for ambulation SNOMED Code(s): 829091747 ICD Code: Z78.9 - OTHER SPECIFIED HEALTH STATUS Status: Chronic Priority : Medium Current Visit: Yes (3) Coronary artery disease SNOMED Code(s): 14418024 ICD Code: I25.10 - ATHSCL HEART DISEASE OF [place] CORONARY ARTERY W/O ANG PCTRS Status: Chronic Priority: High Current Visit: Yes Qualifiers: Coronary Disease-Associated Artery/Lesion type: [place] artery [place] vs. transplanted heart: [place] heart Associated angina: without angina Qualified Code(s): I25.10 - Atherosclerotic heart disease of [place] coronary artery without angina pectoris (4) Hypertension SNOMED Code(s): 88380826 ICD Code: I10 - ESSENTIAL (PRIMARY) HYPERTENSION Status: Chronic Priority : Medium Current Visit: Yes Qualifiers: Hypertension type: essential hypertension Qualified Code(s): I10 - Essential (primary) hypertension (5) Diabetes type 2, controlled SNOMED Code(s): 93170185, 938489396 ICD Code: E11.9 - TYPE 2 DIABETES MELLITUS WITHOUT COMPLICATIONS Status: Chronic Priority: High Current Visit: Yes Qualifiers: Diabetes mellitus computer terminal operator insulin use: without prison use Diabetes mellitus complication status: without complication Qualified Code(s): E11.9 - Type 2 diabetes mellitus without complications (6) Mild dementia SNOMED Code(s): 51399325 ICD Code: F03.90 - UNSPECIFIED DEMENTIA WITHOUT BEHAVIORAL DISTURBANCE Status: Chronic Priority: High Current Visit: Yes (7) Impairment of short-term and long-term memory SNOMED Code(s): 172363525, 408519889, 474650177 ICD Code: R41.3 - OTHER AMNESIA Status: Chronic Priority: High Current Visit: Yes - Patient Summary/Data Consults: Consultations 08/26/18 17:07 OT Evaluation and Treatment [CONS] Routine PT Evaluation and Treatment [CONS] Routine Hospital Course: The patient is an 78-year-old gentleman who will be admitted to observation secondary to his dizziness. Additionally, the patient was having great difficulty in ambulating due to his vertigo. At this time it appears like benign positional vertigo. The patient has multiple medical problems each of which can contribute to the patient's dizziness and vertigo. The patient will be ordered to have PT OT to assess for vestibular conditions. The patient will also be kept on appropriate ADA diet. He be on insulin sliding scale as necessary. The patient was started on meclizine 25 mg by mouth daily to help with his dizziness and lightheadedness and this had improved his symptoms. The patient still remained weak and had been evaluated by physical therapy. Physical therapy reported that the patient needed assistance during ambulation was noted to have sidestepping with multiple corrections. The patient also had reported that his dizziness had improved over the course of hospitalization. A CT scan which was obtained on August 26, 2018 as a part of the patient's initial workup showed advanced atrophy of his brain which is consistent with the patient 's physical examination with regards to his impaired short and long-term memory. There were no acute findings on the CT examination. The patient's laboratory studies conducted through his hospitalization and remained benign with the exception of the patient's TSH being at 4.22 and for this the patient is recommended follow-up with his primary care physician for hypothyroidism. The patient upon discharge had been ordered to have Antivert to help with his dizziness and low dose of 12.5 mg by mouth twice a day as needed for dizziness. Home health has been recommended for the patient as he is having extreme difficulty in ambulating and will be considered homebound as to leave his house would be a arduous task. The patient does have evidence of impaired short-term and long-term memory and will need to have care services to help monitor his medication as well as assessment of the effectiveness of the changes or additions. I'm concerned that because of his memory issues that the patient may not be able to adequately dose his medications by himself. The patient will also be followed at home by, Dr. Abdalla, his primary care physician. The patient' s diabetes had been well-controlled during hospitalization. The patient also had been tolerating his diet well. The patient is also to continue with activity as tolerated with his physical limitations. He is to have his diet as tolerated. The patient has been hemodynamically stable and he is discharged from acute hospitalization with the recommendations listed above. - Patient Instructions Diet: Heart Healthy Diet, Diabetic Diet Activity: As Tolerated Notify Provider of: Fever, Increased Pain - Discharge Plan *PRESCRIPTION DRUG MONITORING PROGRAM REVIEWED*: No *COPY OF PRESCRIPTION DRUG MONITORING REPORT IN PATIENT [place]: No Prescriptions/Med Rec: Meclizine [Antivert] 12.5 mg PO BID PRN #30 tab PRN Reason: Dizziness Home Medications: Home Meds Acetaminophen [Tylenol Extra Strength] 500 mg PO Q4H PRN 08/26/18 [History] Aspirin [Halfprin] 81 mg PO DAILY 08/26/18 [History] Calcitonin ([place]) [Miacalcin Nasal [place]] 1 spray NASLF Q2D 08/26/18 [History] Calcitonin ([place]) [Miacalcin Nasal [place]] 1 spray NASRT Q2D 08/26/18 [History] Carboxymethylcellulose Sodium [Refresh Plus 0.5%] 1 drop EYEBOTH Q8H PRN [History] Isosorbide Mononitrate [Imdur] 30 mg PO DAILY 08/26/18 [History] Levothyroxine 25 mcg PO ACBREAKFAST 08/26/18 [History] Metoprolol Tartrate 75 mg PO BID 08/26/18 [History] Multivitamin [Daily Jordy] 1 tab PO DAILY 08/26/18 [History] Tamsulosin [Flomax] 0.4 mg PO QPM 08/26/18 [History] atorvaSTATin [Lipitor] 10 mg PO BEDTIME 08/26/18 [History] metFORMIN [Glucophage] 250 mg PO BIDMEALS 08/26/18 [History] Meclizine [Antivert] 12.5 mg PO BID PRN #30 tab 08/28/18 [Rx] Oxygen Therapy Mode: Room Air Patient Handouts: Vertigo, [id number], Mild Neurocognitive Disorder Forms: ED Department Discharge Referrals: Zachariah Abdalla MD [Physician] - - Discharge Summary/Plan Comment DC Time >30 min.: Yes - General Info Date of Service: 08/28/18 Admission Dx/Problem (Free Text: Admission Diagnosis/Problem Admission Diagnosis/Problem Dizziness, poor ambulation, dementia, impaired short-term memory Subjective Update: The patient says that he is doing much better today. He does not remember speaking with me yesterday. The patient has denied any pain. He is a poor historian. Functional Status: Reports: Pain Controlled - Review of Systems General: Reports: No Symptoms HEENT: Reports: No Symptoms Pulmonary: Reports: No Symptoms Cardiovascular: Reports: No Symptoms Gastrointestinal: Reports: No Symptoms Genitourinary: Reports: No Symptoms Musculoskeletal: Reports: No Symptoms Skin: Reports: No Symptoms Neurological: Reports: No Symptoms Psychiatric: Reports: No Symptoms Systems Review Comment: The patient is considered to be a poor historian. - Patient Data Vitals - Most Recent: Last Vital Signs Temp 36.8 C 08/28/18 03:39 Pulse 63 08/28/18 03:39 Resp 18 08/28/18 03:39 BP 107/63 08/28/18 03:39 Pulse Ox 92 L 08/28/18 03:39 Weight - Most Recent: 85.275 kg I&O - Last 24 hours: Intake & Output 08/27/18 08/28/18 08/28/18 22:59 06:59 14:59 Intake Total 650 1072 Output Total 0 240 Balance 650 832 Lab Results - Last 24 hrs: Laboratory Results - last 24 hr 08/27/18 08/27/18 08/28/18 Range/Units 11:25 16:08 06:18 POC Glucose 242 H 89 98 (60-110) mg/dL Med Orders - Current: Current Medications Acetaminophen (Tylenol) 650 mg PO Q4H PRN PRN Reason: Pain (Mild 1-3)/fever Artificial Tears (Refresh Plus 0.5%) 1 each EYEBOTH Q8H PRN PRN Reason: Dry Eyes Last Admin: 08/27/18 20:30 Dose: 1 drop Enoxaparin Sodium (Lovenox) 30 mg SUBCUT Q24H [facility] Last Admin: 08/27/18 17:58 Dose: 30 mg Furosemide (Lasix) 40 mg PO BID@0800,1200 [facility] Last Admin: 08/27/18 12:20 Dose: 40 mg Sodium Chloride (Normal Saline) 1,000 mls @ 50 mls/hr IV ASDIRECTED [facility] Last Admin: 08/28/18 00:40 Dose: 50 mls/hr Insulin Aspart (Novolog) 0 unit SUBCUT TIDAC [facility]; Protocol Last Admin: 08/28/18 06:34 Dose: Not Given Isosorbide Mononitrate (Imdur) 30 mg PO DAILY [facility] Last Admin: 08/27/18 08:17 Dose: 30 mg Levothyroxine Sodium (Levothyroxine) 25 mcg PO ACBREAKFAST [facility] Last Admin: 08/28/18 06:33 Dose: 25 mcg Metformin HCl (Glucophage) 250 mg PO BIDMEALS [facility] Last Admin: 08/27/18 17:56 Dose: 250 mg Metoprolol Tartrate (Lopressor) 75 mg PO 0730,1700 [facility] Last Admin: 08/27/18 19:39 Dose: 75 mg Ondansetron HCl (Zofran Odt) 4 mg PO Q4H PRN PRN Reason: nausea, able to take PO Oxycodone HCl (Oxycodone) 5 mg PO Q4H PRN PRN Reason: Pain (moderate 4-6) Calcitonin [place] (Nasal [place]) 0 each LISA Q2D@0900 [facility] Calcitonin [place] (Nasal [place]) 0 each LISA Q2D@0900 [facility] Sodium Chloride (Saline Flush) 10 ml FLUSH ASDIRECTED PRN PRN Reason: Keep Vein Open Sodium Chloride (Saline Flush) 2.5 ml FLUSH ASDIRECTED PRN PRN Reason: Keep Vein Open Tamsulosin HCl (Flomax) 0.4 mg PO QPM [facility] Last Admin: 08/27/18 17:57 Dose: 0.4 mg Temazepam (Restoril) 15 mg PO BEDTIME PRN PRN Reason: Sleep Discontinued Medications Calcitonin [place] (Miacalcin Nasal [place]) 3.7 ml LISA Q2D [facility] Last Admin: 08/26/18 18:24 Dose: Not Given Sodium Chloride (Normal Saline) 1,000 mls @ 125 mls/hr IV STAT [facility] Last Infusion: 08/26/18 18:26 Dose: 50 mls/hr Meclizine HCl (Antivert) 25 mg PO ONETIME ONE Stop: 08/27/18 07:14 Last Admin: 08/27/18 08:16 Dose: 25 mg Metoprolol Tartrate (Lopressor) 75 mg PO BID [facility] Last Admin: 08/26/18 21:43 Dose: Not Given - Exam Quality Assessment: Denies: Supplemental Oxygen General: Reports: Alert, Oriented, Cooperative, No Acute Distress HEENT: Reports: Pupils Equal, Pupils Reactive, EOMI (No nystagmus noted), Mucous Membr. Moist/[place] Neck: Reports: Supple, Trachea Midline Lungs: Reports: Clear to Auscultation, Normal Respiratory Effort Cardiovascular: Reports: Regular Rate, Regular Rhythm GI/Abdominal Exam: Normal Bowel Sounds, Soft, Non-Tender, No Distention Back Exam: Reports: Normal Inspection, Full Range of Motion (Age appropriate range of motion) Extremities: Normal Inspection (Age appropriate), Normal Range of Motion, No Pedal Edema Skin: Reports: Warm, Dry, Intact Neurological: Reports: No New Focal Deficit Psy/Mental Status: Reports: Alert, Normal Affect, Normal Mood
[2018-08-28] MEDS ORDERED: CALCITONIN SALMON NAS SCH (09:00)
[2018-08-28 19:56] VITALS: BP 111/63
[2018-08-29] MEDS ORDERED: CALCITONIN SALMON NAS SCH (09:00)
== END 2018-08-28 19:00 | disposition home health service (06) ==
LOC: MW.ED 14:23 → MW.MS 16:47
PROVIDERS: ADMIT Internal Medicine; ATTEND Internal Medicine
DX: R42 Dizziness and giddiness (principal); I25.10 Atherosclerotic heart disease of native coronary artery without angina pectoris; I10 Essential (primary) hypertension; E11.9 Type 2 diabetes mellitus without complications; E78.00 Pure hypercholesterolemia, unspecified; E03.9 Hypothyroidism, unspecified; F03.90 Unspecified dementia, unspecified severity, without behavioral disturbance, psychotic disturbance, mood disturbance, and anxiety; R41.3 Other amnesia; Z79.82 Long term (current) use of aspirin; Z79.84 Long term (current) use of oral hypoglycemic drugs; Z79.899 Other long term (current) drug therapy
CPT/HCPCS: 36415; 70450; 71045; 80048; 80053; 81003; 82962; 84443; 84484; 85025; 85610; 93005; 96360; 96361; 96372; 97161; 97165; 97530; 99285; A9270; G0378; J1650; J1815; J7040; 99283

== ENCOUNTER 2021-04-19 01:45 | Emergency (ER) | payer MEDICARE, OTHER ==
[2021-04-19] MEDS ORDERED: Sodium Chloride 0.9% 2.5 ML Syringe FLUSH PRN (01:53)
[2021-04-19] MEDS ORDERED: Sodium Chloride 0.9% 1,000 ML IV ONE ×3 (01:53→02:53)
[2021-04-19] MEDS ORDERED: Piperacillin/Tazobactam 4.5 GM in Sodium Chloride 0.9% 100 ML IV ONE (01:53)
--- NOTE | 2021-04-19 02:09 | EDM.PDOC ---
<MarkosalidaFarhat ortega [place] - Last Filed: 04/19/21 05:44> ED HPI GENERAL MEDICAL PROBLEM - General Stated Complaint: DIFFICULTY BREATHING Time Seen by Provider: 04/19/21 01:53 Source of Information: Reports: EMS, Family History Limitations: Reports: Altered Mental Status - History of Present Illness INITIAL COMMENTS - FREE TEXT/NARRATIVE: 80-year-old male past medical history [id number] diabetes, hypothyroidism, CAD status post CABG, dementia presents for respiratory distress and altered mental status. History is limited secondary to clinical condition. History from EMS. Patient was in normal state of health today. Family members have a camera in his room and noticed him gasping for air tonight prompting him to call EMS. On their arrival patient was with agonal respirations and not answering questions. - Related Data Allergies Allergy/AdvReac Type Severity Reaction Status Date / Time No Known Allergies Allergy Verified 04/19/21 02:01 Home Meds: Home Meds Acetaminophen [Tylenol Extra Strength] 500 mg PO Q4H PRN 08/26/18 [History] Aspirin [Halfprin] 81 mg PO DAILY 08/26/18 [History] Calcitonin ([place]) [Miacalcin Nasal [place]] 1 spray NASLF Q2D 08/26/18 [History] Calcitonin ([place]) [Miacalcin Nasal [place]] 1 spray NASRT Q2D 08/26/18 [History] Carboxymethylcellulose Sodium [Refresh Plus 0.5%] 1 drop EYEBOTH Q8H PRN 08/26/18 [History] Isosorbide Mononitrate [Imdur] 30 mg PO DAILY 08/26/18 [History] Levothyroxine 25 mcg PO ACBREAKFAST 08/26/18 [History] Metoprolol Tartrate 75 mg PO BID 08/26/18 [History] Multivitamin [Daily Jordy] 1 tab PO DAILY 08/26/18 [History] Tamsulosin [Flomax] 0.4 mg PO QPM 08/26/18 [History] atorvaSTATin [Lipitor] 10 mg PO BEDTIME 08/26/18 [History] metFORMIN [Glucophage] 250 mg PO BIDMEALS 08/26/18 [History] Meclizine [Antivert] 12.5 mg PO BID PRN #30 tab 08/28/18 [Rx] Past Medical History HEENT History: Reports: Hard of Hearing Cardiovascular History: Reports: CAD, High Cholesterol Respiratory History: Reports: None Gastrointestinal History: Reports: None Genitourinary History: Reports: Urinary Incontinence Musculoskeletal History: Reports: None Neurological History: Reports: Headaches, Chronic, Vertigo, Other (See Below) Psychiatric History: Reports: None Endocrine/Metabolic History: Reports: Other (See Below) Other Endocrine/Metabolic History: Borderline Diabetic Hematologic History: Reports: None Immunologic History: Reports: None Dermatologic History: Reports: None - Past Surgical History HEENT Surgical History: Reports: Cataract Surgery Cardiovascular Surgical History: Reports: Coronary Artery Bypass Social & Family History - Family History Family Medical History: No Pertinent Family History - Living Situation & Occupation Living situation: Reports: , with Spouse Occupation: Retired ED ROS GENERAL - Review of Systems Review Of Systems: Comprehensive ROS is negative, except as noted in HPI. ED EXAM, GENERAL - Physical Exam Exam: See Below Exam Limited By: Respiratory Distress General Appearance: Other (GCS3, no purposeful movements, not responsive to painful stimuli, no eye opening, non-verbal) Eye Exam: Bilateral Eye: PERRL Ears: Normal External Exam Throat/Mouth: No Airway Compromise Head: Atraumatic, Normocephalic Neck: Normal Inspection, Non-Tender Respiratory/Chest: Other (patient being bagged with ambu-bag, lungs CTAB w/ bagging ) Cardiovascular: Normal Peripheral Pulses, No Edema, Tachycardia GI/Abdominal: Soft Extremities: Normal Inspection Skin Exam: Cool, Cyanosis, Mottled #1 Interpretation EKG Date: 04/19/21 Time: 01:41 Rhythm: NSR Rate (Beats/Min): 96 [place]: Normal P-Wave: Present QRS: Normal ST-T: Normal QT: Normal [place]/PQ Interval: 206 EKG Interpretation Comments: LBBB, no acute ischemic changes Course - Re-Assessments/Exams Free Text/Narrative Re-Assessment/Exam: 04/19/21 02:59 Patient presents in respiratory distress with O2 sat in the 50s with Ambu bag in. Patient was intubated for respiratory failure. A central line was placed for better IV access. We will get broad labs, will give Zosyn for potential sepsis. We will get COVID swab. 04/19/21 03:14 Will give aspirin and heparin for possible ACS. I have reached out to [facility], [facility], [facility], and [facility] who all do not have the capability to accept the patient for transfer. 04/19/21 03:21 Patient is on state transfer center list. 04/19/21 04:36 Repeat ABG after placement on ventilator is worsening. Respiratory rate has been increased to 22. Will repeat ABG. 04/19/21 05:27 Little change in repeat ABG I had a very long discussion with patient's son Mr. Chan regarding his clinical condition. We discussed goals of care. Son is uncertain at this time which way he'd like to precede. He was informed that the patient's chances of a meaningful recovery are very low. He understands and wants his father to be comfortable but at this time does want the patient transferred to higher level of care for more comprehensive workup. I also had a very long conversation with patient's and daughter. They do not seem to understand the severity of patient's illness. They would like patient transferred to higher level of care for further workup and management. 04/19/21 07:00 Patient care signed out to Dr. Morales pending transfer of care to tertiary [facility]. Departure - Departure Disposition: DC/Tfer to Acute Hospital 02 Condition: Critical Clinical Impression: Acute IN Respiratory failure Qualifiers: Chronicity: acute Respiratory failure complication: hypoxia and hypercapnia Qualified Code(s): J96.01 - Acute respiratory failure with hypoxia - Discharge Information Referrals: Zachariah Abdalla MD [Primary Care Provider] - Critical Care Note - Critical Care Note Total Time (mins): 85 Sepsis Event Note (ED) - Evaluation Sepsis Screening Result: No Definite Risk <Ankur Morales - Last Filed: 04/19/21 19:13> #2 Interpretation EKG Interpretation Comments: EKG 19 April 2021 at 12:45 PM shows sinus rhythm heart rate 91 [place] 118 [place] XI borderline short OH with a left bundle branch block. There is no concordant ST changes to indicate acute STEMI. Impression no acute injury seen on this EKG Course - Re-Assessments/Exams Free Text/Narrative Re-Assessment/Exam: 04/19/21 07:40 Patient was signed out to me at the end of his shift from by my partner. He has an oxygen saturation of 93% after my partner increased his rate on his ventilator. He was bucking and fighting the ventilator. Blood pressure being supported by pressors but we will give him additional sedation and paralysis as needed. We will try to transfer to a place that can handle a ventilated patient. Everything in [place] has been exhausted and [place] is unable to take him. 04/19/21 17:23 Patient's blood gas was slightly improved at the last check. Patient seem to be waking up a little bit but certainly not cooperative enough involuntarily breathing deep enough to consider extubation at this point. The efforts continue to try to find placement. No place in the [place] of [place] take [place] as no beds form [place] he has no beds forearm [facility] and [place] have no beds form no one in [place] or [place] has peds form we continue to try to find a place. [place] [facility] were going to try to see if they had an ICU bed and did not have anyone waiting in the ER and will check back. 04/19/21 19:14 2 [facility]Pierre at [facility] accepted this patient in transfer when he had a bed open up. A flight will be arranged and the family was still informed <Adalberto Smith - Last Filed: 04/19/21 19:38> Course - Vital Signs Last Recorded V/S: Last Vital Signs Temp 97.7 F 04/19/21 03:49 Pulse 93 04/19/21 07:58 Resp 18 04/19/21 07:58 BP 100/66 04/19/21 07:58 Pulse Ox 98 04/19/21 07:58 - Orders/Labs/Meds Orders: Active Orders 24 hr Category Date Time Status Cardiac Monitoring [RC] . DIRECTED Care 04/19/21 01:53 Active Pulse Oximetry [RC] ASDIRECTED Care 04/19/21 01:53 Active RT Ventilator, Adult [RC] ASDIRECTED Care 04/19/21 02:42 Active CULTURE BLOOD [BC] Stat Lab 04/19/21 02:00 Results CULTURE BLOOD [BC] Stat Lab 04/19/21 02:40 Received PTT,PARTIAL THROMBOPLSTIN TIME [COAG] Q6H Lab 04/19/21 21:15 Ordered PTT,PARTIAL THROMBOPLSTIN TIME [COAG] Q6H Lab 04/20/21 03:15 Ordered PTT,PARTIAL THROMBOPLSTIN TIME [COAG] Q6H Lab 04/20/21 09:15 Ordered PTT,PARTIAL THROMBOPLSTIN TIME [COAG] Q6H Lab 04/20/21 15:15 Ordered Heparin Sodium/0.45% NaCl [Heparin 25,000 Units in 1/2 Med 04/19/21 03:15 Active NS 500 ML] 500 ml IV TITRATE Sodium Chloride 0.9% [Saline Flush] Med 04/19/21 01:53 Active 2.5 ml FLUSH ASDIRECTED PRN fentaNYL/Normal Saline [fentaNYL 2500 MCG in NS 250 ML Med 04/19/21 03:08 Active (10 MCG/ML)] 2,500 mcg Premix Bag 1 bag IV TITRATE Blood Culture x2 Reflex Set [OM.PC] Stat Oth 04/19/21 01:53 Ordered Saline Lock Insert [OM.PC] Stat Oth 04/19/21 01:53 Ordered Medication Orders Fentanyl Citrate 2,500 mcg/ (Premix) 250 mls @ 2.5 mls/hr IV TITRATE PRN; Protocol PRN Reason: Sedation Last Titration: 04/19/21 06:43 Dose: 25 mcg/hr, 2.5 mls/hr Documented by: Titration: 04/19/21 06:05 Dose: 50 mcg/hr, 5 mls/hr Documented by: Admin: 04/19/21 03:10 Dose: 25 mcg/hr, 2.5 mls/hr Documented by: HARINDER Heparin Sodium/Sodium Chloride (Heparin 25,000 Units In 1/2 Ns 500 Ml) 500 mls @ 17.448 mls/hr IV TITRATE AMI; Protocol Last Titration: 04/19/21 10:53 Dose: 10 units/kg/hr, 14.54 mls/hr Documented by: SOPHY Cosigned by: FREDIS Admin: 04/19/21 03:23 Dose: 12 units/kg/hr, 17.448 mls/hr Documented by: LISA Cosigned by: HARINDER Sodium Chloride (Sodium Chloride 0.9% 2.5 Ml Syringe) 2.5 ml FLUSH ASDIRECTED PRN PRN Reason: Keep Vein Open Labs: Laboratory Tests 04/19/21 04/19/21 04/19/21 Range/Units 01:50 01:52 01:55 WBC 9.01 (4.0-11.0) K/uL RBC 4.49 L (4.50-5.90) M/uL Hgb 14.5 (13.0-17.0) g/dL Hct 43.3 (38.0-50.0) % MCV 96.4 (80.0-98.0) fL MCH 32.3 H (27.0-32.0) pg MCHC 33.5 (31.0-37.0) g/dL RDW Std Deviation 49.1 (28.0-62.0) fl RDW Coeff of Juanita 14 (11.0-15.0) % Plt Count 226 (150-400) K/uL MPV 10.10 (7.40-12.00) fL Add Manual Diff YES Neutrophils % (Manual) 57 (48.0-80.0) % Band Neutrophils % 20 % Lymphocytes % (Manual) 13 L (16.0-40.0) % Monocytes % (Manual) 1 (0.0-15.0) % Metamyelocytes % 7 % Myelocytes % 2 % Nucleated RBC % 0.0 /100WBC Absolute Seg Neuts 5.1 (1.4-5.7) Band Neutrophils # 1.8 Lymphocytes # (Manual) 1.2 (0.6-2.4) Monocytes # (Manual) 0.1 (0.0-0.8) Absolute Metamyelocyte 0.6 Absolute Myelocytes 0.2 Nucleated RBCs # 0 K/uL INR APTT (18.6-31.3) SEC ABG pH 7.23 L (7.35-7.45) ABG pCO2 43 (35-45) mmHG ABG pO2 52 L (80-105) mmHG ABG HCO3 18 L (22-26) mEq/L ABG Total CO2 17.0 L (23-27) mmol/L ABG Base Excess -8.9 L (-2.0-3.0) Sodium (136-148) mmol/L Potassium (3.5-5.1) mmol/L Chloride (98-107) mmol/L Carbon Dioxide (21.0-32.0) mmol/L BUN (7.0-18.0) mg/dL Creatinine (0.8-1.3) mg/dL Est Cr Clr Drug Dosing Estimated GFR (MDRD) ml/min Glucose (74-106) mg/dL Lactic Acid (0.4-2.0) mmol/L Calcium (8.5-10.1) mg/dL Phosphorus (2.6-4.7) mg/dL Magnesium (1.8-2.4) mg/dL Total Bilirubin (0.2-1.0) mg/dL AST (15-37) IU/L ALT (14-63) IU/L Alkaline Phosphatase (46-116) U/L Creatine Kinase (26-308) U/L Troponin I (0.000-0.056) ng/mL C-Reactive Protein (0.00-0.90) mg/dL B-Natriuretic Peptide (<100) PG/ML Total Protein (6.4-8.2) g/dL Albumin (3.4-5.0) g/dL Globulin (2.6-4.0) g/dL Albumin/Globulin Ratio (0.9-1.6) Lipase (73-393) U/L Free T4 (0.76-1.46) ng/dL TSH, Ultra Sensitive (0.36-3.74) uIU/mL Urine Color Urine Appearance Urine pH (5.0-8.0) Ur Specific [place] (1.001-1.035) Urine Protein (NEGATIVE) mg/dL Urine Glucose (UA) (NEGATIVE) mg/dL Urine Ketones (NEGATIVE) mg/dL Urine Occult Blood (NEGATIVE) Urine Nitrite (NEGATIVE) Urine Bilirubin (NEGATIVE) Urine Urobilinogen (<2.0) EU/dL Ur Leukocyte Esterase (NEGATIVE) Urine RBC (0-2/HPF) Urine WBC (0-5/HPF) Ur Epithelial Cells (NONE-FEW) Urine Bacteria (NEGATIVE) Ketones (NEG) Influenza Type A RNA NEGATIVE (NEGATIVE) Influenza Type B RNA NEGATIVE (NEGATIVE) SARS-CoV-2 RNA (AVINASH) NEGATIVE (NEGATIVE) 04/19/21 04/19/21 04/19/21 Range/Units 01:55 02:00 02:00 WBC (4.0-11.0) K/uL RBC (4.50-5.90) M/uL Hgb (13.0-17.0) g/dL Hct (38.0-50.0) % MCV (80.0-98.0) fL MCH (27.0-32.0) pg MCHC (31.0-37.0) g/dL RDW Std Deviation (28.0-62.0) fl RDW Coeff of Juanita (11.0-15.0) % Plt Count (150-400) K/uL MPV (7.40-12.00) fL Add Manual Diff Neutrophils % (Manual) (48.0-80.0) % Band Neutrophils % % Lymphocytes % (Manual) (16.0-40.0) % Monocytes % (Manual) (0.0-15.0) % Metamyelocytes % % Myelocytes % % Nucleated RBC % /100WBC Absolute Seg Neuts (1.4-5.7) Band Neutrophils # Lymphocytes # (Manual) (0.6-2.4) Monocytes # (Manual) (0.0-0.8) Absolute Metamyelocyte Absolute Myelocytes Nucleated RBCs # K/uL INR 1.14 APTT 21.3 (18.6-31.3) SEC ABG pH (7.35-7.45) ABG pCO2 (35-45) mmHG ABG pO2 (80-105) mmHG ABG HCO3 (22-26) mEq/L ABG Total CO2 (23-27) mmol/L ABG Base Excess (-2.0-3.0) Sodium 140 (136-148) mmol/L Potassium 4.3 (3.5-5.1) mmol/L Chloride 104 (98-107) mmol/L Carbon Dioxide 22.2 (21.0-32.0) mmol/L BUN 25 H (7.0-18.0) mg/dL Creatinine 1.5 H (0.8-1.3) mg/dL Est Cr Clr Drug Dosing TNP Estimated GFR (MDRD) 44.8 ml/min Glucose 242 H (74-106) mg/dL Lactic Acid (0.4-2.0) mmol/L Calcium 8.7 (8.5-10.1) mg/dL Phosphorus 4.8 H (2.6-4.7) mg/dL Magnesium 1.7 L (1.8-2.4) mg/dL Total Bilirubin 0.8 (0.2-1.0) mg/dL AST 23 (15-37) IU/L ALT 26 (14-63) IU/L Alkaline Phosphatase 97 (46-116) U/L Creatine Kinase (26-308) U/L Troponin I 0.507 H* (0.000-0.056) ng/mL C-Reactive Protein 2.10 H (0.00-0.90) mg/dL B-Natriuretic Peptide 269 H (<100) PG/ML Total Protein 7.0 (6.4-8.2) g/dL Albumin 2.8 L (3.4-5.0) g/dL Globulin 4.2 H (2.6-4.0) g/dL Albumin/Globulin Ratio 0.7 L (0.9-1.6) Lipase 18 L (73-393) U/L Free T4 1.11 (0.76-1.46) ng/dL TSH, Ultra Sensitive 11.63 H (0.36-3.74) uIU/mL Urine Color Urine Appearance Urine pH (5.0-8.0) Ur Specific [place] (1.001-1.035) Urine Protein (NEGATIVE) mg/dL Urine Glucose (UA) (NEGATIVE) mg/dL Urine Ketones (NEGATIVE) mg/dL Urine Occult Blood (NEGATIVE) Urine Nitrite (NEGATIVE) Urine Bilirubin (NEGATIVE) Urine Urobilinogen (<2.0) EU/dL Ur Leukocyte Esterase (NEGATIVE) Urine RBC (0-2/HPF) Urine WBC (0-5/HPF) Ur Epithelial Cells (NONE-FEW) Urine Bacteria (NEGATIVE) Ketones (NEG) Influenza Type A RNA (NEGATIVE) Influenza Type B RNA (NEGATIVE) SARS-CoV-2 RNA (AVINASH) (NEGATIVE) 04/19/21 04/19/21 04/19/21 Range/Units 02:00 02:00 02:00 WBC (4.0-11.0) K/uL RBC (4.50-5.90) M/uL Hgb (13.0-17.0) g/dL Hct (38.0-50.0) % MCV (80.0-98.0) fL MCH (27.0-32.0) pg MCHC (31.0-37.0) g/dL RDW Std Deviation (28.0-62.0) fl RDW Coeff of Juanita (11.0-15.0) % Plt Count (150-400) K/uL MPV (7.40-12.00) fL Add Manual Diff Neutrophils % (Manual) (48.0-80.0) % Band Neutrophils % % Lymphocytes % (Manual) (16.0-40.0) % Monocytes % (Manual) (0.0-15.0) % Metamyelocytes % % Myelocytes % % Nucleated RBC % /100WBC Absolute Seg Neuts (1.4-5.7) Band Neutrophils # Lymphocytes # (Manual) (0.6-2.4) Monocytes # (Manual) (0.0-0.8) Absolute Metamyelocyte Absolute Myelocytes Nucleated RBCs # K/uL INR APTT (18.6-31.3) SEC ABG pH (7.35-7.45) ABG pCO2 (35-45) mmHG ABG pO2 (80-105) mmHG ABG HCO3 (22-26) mEq/L ABG Total CO2 (23-27) mmol/L ABG Base Excess (-2.0-3.0) Sodium (136-148) mmol/L Potassium (3.5-5.1) mmol/L Chloride (98-107) mmol/L Carbon Dioxide (21.0-32.0) mmol/L BUN (7.0-18.0) mg/dL Creatinine (0.8-1.3) mg/dL Est Cr Clr Drug Dosing Estimated GFR (MDRD) ml/min Glucose (74-106) mg/dL Lactic Acid 6.9 H* (0.4-2.0) mmol/L Calcium (8.5-10.1) mg/dL Phosphorus (2.6-4.7) mg/dL Magnesium (1.8-2.4) mg/dL Total Bilirubin (0.2-1.0) mg/dL AST (15-37) IU/L ALT (14-63) IU/L Alkaline Phosphatase (46-116) U/L Creatine Kinase 252 (26-308) U/L Troponin I (0.000-0.056) ng/mL C-Reactive Protein (0.00-0.90) mg/dL B-Natriuretic Peptide (<100) PG/ML Total Protein (6.4-8.2) g/dL Albumin (3.4-5.0) g/dL Globulin (2.6-4.0) g/dL Albumin/Globulin Ratio (0.9-1.6) Lipase (73-393) U/L Free T4 (0.76-1.46) ng/dL TSH, Ultra Sensitive (0.36-3.74) uIU/mL Urine Color Urine Appearance Urine pH (5.0-8.0) Ur Specific [place] (1.001-1.035) Urine Protein (NEGATIVE) mg/dL Urine Glucose (UA) (NEGATIVE) mg/dL Urine Ketones (NEGATIVE) mg/dL Urine Occult Blood (NEGATIVE) Urine Nitrite (NEGATIVE) Urine Bilirubin (NEGATIVE) Urine Urobilinogen (<2.0) EU/dL Ur Leukocyte Esterase (NEGATIVE) Urine RBC (0-2/HPF) Urine WBC (0-5/HPF) Ur Epithelial Cells (NONE-FEW) Urine Bacteria (NEGATIVE) Ketones NEGATIVE (NEG) Influenza Type A RNA (NEGATIVE) Influenza Type B RNA (NEGATIVE) SARS-CoV-2 RNA (AVINASH) (NEGATIVE) 04/19/21 04/19/21 04/19/21 Range/Units 02:15 03:21 04:00 WBC (4.0-11.0) K/uL RBC (4.50-5.90) M/uL Hgb (13.0-17.0) g/dL Hct (38.0-50.0) % MCV (80.0-98.0) fL MCH (27.0-32.0) pg MCHC (31.0-37.0) g/dL RDW Std Deviation (28.0-62.0) fl RDW Coeff of Juanita (11.0-15.0) % Plt Count (150-400) K/uL MPV (7.40-12.00) fL Add Manual Diff Neutrophils % (Manual) (48.0-80.0) % Band Neutrophils % % Lymphocytes % (Manual) (16.0-40.0) % Monocytes % (Manual) (0.0-15.0) % Metamyelocytes % % Myelocytes % % Nucleated RBC % /100WBC Absolute Seg Neuts (1.4-5.7) Band Neutrophils # Lymphocytes # (Manual) (0.6-2.4) Monocytes # (Manual) (0.0-0.8) Absolute Metamyelocyte Absolute Myelocytes Nucleated RBCs # K/uL INR APTT 24.3 (18.6-31.3) SEC ABG pH 7.11 L* (7.35-7.45) ABG pCO2 67 H (35-45) mmHG ABG pO2 64 L (80-105) mmHG ABG HCO3 21 L (22-26) mEq/L ABG Total CO2 20.1 L (23-27) mmol/L ABG Base Excess -9.6 L (-2.0-3.0) Sodium (136-148) mmol/L Potassium (3.5-5.1) mmol/L Chloride (98-107) mmol/L Carbon Dioxide (21.0-32.0) mmol/L BUN (7.0-18.0) mg/dL Creatinine (0.8-1.3) mg/dL Est Cr Clr Drug Dosing Estimated GFR (MDRD) ml/min Glucose (74-106) mg/dL Lactic Acid (0.4-2.0) mmol/L Calcium (8.5-10.1) mg/dL Phosphorus (2.6-4.7) mg/dL Magnesium (1.8-2.4) mg/dL Total Bilirubin (0.2-1.0) mg/dL AST (15-37) IU/L ALT (14-63) IU/L Alkaline Phosphatase (46-116) U/L Creatine Kinase (26-308) U/L Troponin I (0.000-0.056) ng/mL C-Reactive Protein (0.00-0.90) mg/dL B-Natriuretic Peptide (<100) PG/ML Total Protein (6.4-8.2) g/dL Albumin (3.4-5.0) g/dL Globulin (2.6-4.0) g/dL Albumin/Globulin Ratio (0.9-1.6) Lipase (73-393) U/L Free T4 (0.76-1.46) ng/dL TSH, Ultra Sensitive (0.36-3.74) uIU/mL Urine Color YELLOW Urine Appearance SLT CLOUDY Urine pH 5.5 (5.0-8.0) Ur Specific [place] >= 1.030 (1.001-1.035) Urine Protein 30 H (NEGATIVE) mg/dL Urine Glucose (UA) NEGATIVE (NEGATIVE) mg/dL Urine Ketones NEGATIVE (NEGATIVE) mg/dL Urine Occult Blood LARGE H (NEGATIVE) Urine Nitrite NEGATIVE (NEGATIVE) Urine Bilirubin NEGATIVE (NEGATIVE) Urine Urobilinogen 1.0 (<2.0) EU/dL Ur Leukocyte Esterase NEGATIVE (NEGATIVE) Urine RBC 10-20 (0-2/HPF) Urine WBC 0-3 (0-5/HPF) Ur Epithelial Cells RARE (NONE-FEW) Urine Bacteria FEW (NEGATIVE) Ketones (NEG) Influenza Type A RNA (NEGATIVE) Influenza Type B RNA (NEGATIVE) SARS-CoV-2 RNA (AVINASH) (NEGATIVE) 04/19/21 04/19/21 04/19/21 Range/Units 04:43 05:12 06:30 WBC (4.0-11.0) K/uL RBC (4.50-5.90) M/uL Hgb (13.0-17.0) g/dL Hct (38.0-50.0) % MCV (80.0-98.0) fL MCH (27.0-32.0) pg MCHC (31.0-37.0) g/dL RDW Std Deviation (28.0-62.0) fl RDW Coeff of Juanita (11.0-15.0) % Plt Count (150-400) K/uL MPV (7.40-12.00) fL Add Manual Diff Neutrophils % (Manual) (48.0-80.0) % Band Neutrophils % % Lymphocytes % (Manual) (16.0-40.0) % Monocytes % (Manual) (0.0-15.0) % Metamyelocytes % % Myelocytes % % Nucleated RBC % /100WBC Absolute Seg Neuts (1.4-5.7) Band Neutrophils # Lymphocytes # (Manual) (0.6-2.4) Monocytes # (Manual) (0.0-0.8) Absolute Metamyelocyte Absolute Myelocytes Nucleated RBCs # K/uL INR APTT (18.6-31.3) SEC ABG pH 7.13 L* 7.15 L* (7.35-7.45) ABG pCO2 62 H 59 H (35-45) mmHG ABG pO2 63 L 71 L (80-105) mmHG ABG HCO3 21 L 21 L (22-26) mEq/L ABG Total CO2 19.9 L 19.5 L (23-27) mmol/L ABG Base Excess -9.2 L -9.0 L (-2.0-3.0) Sodium 141 (136-148) mmol/L Potassium 4.4 (3.5-5.1) mmol/L Chloride 108 H (98-107) mmol/L Carbon Dioxide 22.4 (21.0-32.0) mmol/L BUN 24 H (7.0-18.0) mg/dL Creatinine 1.3 (0.8-1.3) mg/dL Est Cr Clr Drug Dosing TNP Estimated GFR (MDRD) 52.9 ml/min Glucose 189 H (74-106) mg/dL Lactic Acid (0.4-2.0) mmol/L Calcium 8.0 L (8.5-10.1) mg/dL Phosphorus (2.6-4.7) mg/dL Magnesium (1.8-2.4) mg/dL Total Bilirubin (0.2-1.0) mg/dL AST (15-37) IU/L ALT (14-63) IU/L Alkaline Phosphatase (46-116) U/L Creatine Kinase (26-308) U/L Troponin I 1.614 H* (0.000-0.056) ng/mL C-Reactive Protein (0.00-0.90) mg/dL B-Natriuretic Peptide (<100) PG/ML Total Protein (6.4-8.2) g/dL Albumin (3.4-5.0) g/dL Globulin (2.6-4.0) g/dL Albumin/Globulin Ratio (0.9-1.6) Lipase (73-393) U/L Free T4 (0.76-1.46) ng/dL TSH, Ultra Sensitive (0.36-3.74) uIU/mL Urine Color Urine Appearance Urine pH (5.0-8.0) Ur Specific [place] (1.001-1.035) Urine Protein (NEGATIVE) mg/dL Urine Glucose (UA) (NEGATIVE) mg/dL Urine Ketones (NEGATIVE) mg/dL Urine Occult Blood (NEGATIVE) Urine Nitrite (NEGATIVE) Urine Bilirubin (NEGATIVE) Urine Urobilinogen (<2.0) EU/dL Ur Leukocyte Esterase (NEGATIVE) Urine RBC (0-2/HPF) Urine WBC (0-5/HPF) Ur Epithelial Cells (NONE-FEW) Urine Bacteria (NEGATIVE) Ketones (NEG) Influenza Type A RNA (NEGATIVE) Influenza Type B RNA (NEGATIVE) SARS-CoV-2 RNA (AVINASH) (NEGATIVE) 04/19/21 04/19/21 04/19/21 Range/Units 07:25 09:05 09:05 WBC (4.0-11.0) K/uL RBC (4.50-5.90) M/uL Hgb (13.0-17.0) g/dL Hct (38.0-50.0) % MCV (80.0-98.0) fL MCH (27.0-32.0) pg MCHC (31.0-37.0) g/dL RDW Std Deviation (28.0-62.0) fl RDW Coeff of Juanita (11.0-15.0) % Plt Count (150-400) K/uL MPV (7.40-12.00) fL Add Manual Diff Neutrophils % (Manual) (48.0-80.0) % Band Neutrophils % % Lymphocytes % (Manual) (16.0-40.0) % Monocytes % (Manual) (0.0-15.0) % Metamyelocytes % % Myelocytes % % Nucleated RBC % /100WBC Absolute Seg Neuts (1.4-5.7) Band Neutrophils # Lymphocytes # (Manual) (0.6-2.4) Monocytes # (Manual) (0.0-0.8) Absolute Metamyelocyte Absolute Myelocytes Nucleated RBCs # K/uL INR APTT 78.3 H (18.6-31.3) SEC ABG pH 7.12 L* (7.35-7.45) ABG pCO2 66 H (35-45) mmHG ABG pO2 80 (80-105) mmHG ABG HCO3 21 L (22-26) mEq/L ABG Total CO2 23 (23-27) mmol/L ABG Base Excess -9.0 L (-2.0-3.0) Sodium (136-148) mmol/L Potassium (3.5-5.1) mmol/L Chloride (98-107) mmol/L Carbon Dioxide (21.0-32.0) mmol/L BUN (7.0-18.0) mg/dL Creatinine (0.8-1.3) mg/dL Est Cr Clr Drug Dosing Estimated GFR (MDRD) ml/min Glucose (74-106) mg/dL Lactic Acid 3.5 H* (0.4-2.0) mmol/L Calcium (8.5-10.1) mg/dL Phosphorus (2.6-4.7) mg/dL Magnesium (1.8-2.4) mg/dL Total Bilirubin (0.2-1.0) mg/dL AST (15-37) IU/L ALT (14-63) IU/L Alkaline Phosphatase (46-116) U/L Creatine Kinase (26-308) U/L Troponin I (0.000-0.056) ng/mL C-Reactive Protein (0.00-0.90) mg/dL B-Natriuretic Peptide (<100) PG/ML Total Protein (6.4-8.2) g/dL Albumin (3.4-5.0) g/dL Globulin (2.6-4.0) g/dL Albumin/Globulin Ratio (0.9-1.6) Lipase (73-393) U/L Free T4 (0.76-1.46) ng/dL TSH, Ultra Sensitive (0.36-3.74) uIU/mL Urine Color Urine Appearance Urine pH (5.0-8.0) Ur Specific [place] (1.001-1.035) Urine Protein (NEGATIVE) mg/dL Urine Glucose (UA) (NEGATIVE) mg/dL Urine Ketones (NEGATIVE) mg/dL Urine Occult Blood (NEGATIVE) Urine Nitrite (NEGATIVE) Urine Bilirubin (NEGATIVE) Urine Urobilinogen (<2.0) EU/dL Ur Leukocyte Esterase (NEGATIVE) Urine RBC (0-2/HPF) Urine WBC (0-5/HPF) Ur Epithelial Cells (NONE-FEW) Urine Bacteria (NEGATIVE) Ketones (NEG) Influenza Type A RNA (NEGATIVE) Influenza Type B RNA (NEGATIVE) SARS-CoV-2 RNA (AVINASH) (NEGATIVE) 04/19/21 04/19/21 04/19/21 Range/Units 09:48 15:10 16:19 WBC (4.0-11.0) K/uL RBC (4.50-5.90) M/uL Hgb (13.0-17.0) g/dL Hct (38.0-50.0) % MCV (80.0-98.0) fL MCH (27.0-32.0) pg MCHC (31.0-37.0) g/dL RDW Std Deviation (28.0-62.0) fl RDW Coeff of Juanita (11.0-15.0) % Plt Count (150-400) K/uL MPV (7.40-12.00) fL Add Manual Diff Neutrophils % (Manual) (48.0-80.0) % Band Neutrophils % % Lymphocytes % (Manual) (16.0-40.0) % Monocytes % (Manual) (0.0-15.0) % Metamyelocytes % % Myelocytes % % Nucleated RBC % /100WBC Absolute Seg Neuts (1.4-5.7) Band Neutrophils # Lymphocytes # (Manual) (0.6-2.4) Monocytes # (Manual) (0.0-0.8) Absolute Metamyelocyte Absolute Myelocytes Nucleated RBCs # K/uL INR APTT 73.5 H (18.6-31.3) SEC ABG pH (7.35-7.45) ABG pCO2 (35-45) mmHG ABG pO2 (80-105) mmHG ABG HCO3 (22-26) mEq/L ABG Total CO2 (23-27) mmol/L ABG Base Excess (-2.0-3.0) Sodium 140 140 (136-148) mmol/L Potassium 5.2 H 5.2 H (3.5-5.1) mmol/L Chloride 109 H 109 H (98-107) mmol/L Carbon Dioxide 22.0 19.3 L (21.0-32.0) mmol/L BUN 29 H 31 H (7.0-18.0) mg/dL Creatinine 1.6 H 1.8 H (0.8-1.3) mg/dL Est Cr Clr Drug Dosing TNP TNP Estimated GFR (MDRD) 41.6 36.3 ml/min Glucose 157 H 118 H (74-106) mg/dL Lactic Acid (0.4-2.0) mmol/L Calcium 7.9 L 7.8 L (8.5-10.1) mg/dL Phosphorus (2.6-4.7) mg/dL Magnesium (1.8-2.4) mg/dL Total Bilirubin (0.2-1.0) mg/dL AST (15-37) IU/L ALT (14-63) IU/L Alkaline Phosphatase (46-116) U/L Creatine Kinase (26-308) U/L Troponin I 6.040 H* (0.000-0.056) ng/mL C-Reactive Protein (0.00-0.90) mg/dL B-Natriuretic Peptide (<100) PG/ML Total Protein (6.4-8.2) g/dL Albumin (3.4-5.0) g/dL Globulin (2.6-4.0) g/dL Albumin/Globulin Ratio (0.9-1.6) Lipase (73-393) U/L Free T4 (0.76-1.46) ng/dL TSH, Ultra Sensitive (0.36-3.74) uIU/mL Urine Color Urine Appearance Urine pH (5.0-8.0) Ur Specific [place] (1.001-1.035) Urine Protein (NEGATIVE) mg/dL Urine Glucose (UA) (NEGATIVE) mg/dL Urine Ketones (NEGATIVE) mg/dL Urine Occult Blood (NEGATIVE) Urine Nitrite (NEGATIVE) Urine Bilirubin (NEGATIVE) Urine Urobilinogen (<2.0) EU/dL Ur Leukocyte Esterase (NEGATIVE) Urine RBC (0-2/HPF) Urine WBC (0-5/HPF) Ur Epithelial Cells (NONE-FEW) Urine Bacteria (NEGATIVE) Ketones (NEG) Influenza Type A RNA (NEGATIVE) Influenza Type B RNA (NEGATIVE) SARS-CoV-2 RNA (AVINASH) (NEGATIVE) 04/19/21 Range/Units 16:30 WBC (4.0-11.0) K/uL RBC (4.50-5.90) M/uL Hgb (13.0-17.0) g/dL Hct (38.0-50.0) % MCV (80.0-98.0) fL MCH (27.0-32.0) pg MCHC (31.0-37.0) g/dL RDW Std Deviation (28.0-62.0) fl RDW Coeff of Juanita (11.0-15.0) % Plt Count (150-400) K/uL MPV (7.40-12.00) fL Add Manual Diff Neutrophils % (Manual) (48.0-80.0) % Band Neutrophils % % Lymphocytes % (Manual) (16.0-40.0) % Monocytes % (Manual) (0.0-15.0) % Metamyelocytes % % Myelocytes % % Nucleated RBC % /100WBC Absolute Seg Neuts (1.4-5.7) Band Neutrophils # Lymphocytes # (Manual) (0.6-2.4) Monocytes # (Manual) (0.0-0.8) Absolute Metamyelocyte Absolute Myelocytes Nucleated RBCs # K/uL INR APTT (18.6-31.3) SEC ABG pH 7.26 L (7.35-7.45) ABG pCO2 41 (35-45) mmHG ABG pO2 64 L (80-105) mmHG ABG HCO3 19 L (22-26) mEq/L ABG Total CO2 17.3 L (23-27) mmol/L ABG Base Excess -8.0 L (-2.0-3.0) Sodium (136-148) mmol/L Potassium (3.5-5.1) mmol/L Chloride (98-107) mmol/L Carbon Dioxide (21.0-32.0) mmol/L BUN (7.0-18.0) mg/dL Creatinine (0.8-1.3) mg/dL Est Cr Clr Drug Dosing Estimated GFR (MDRD) ml/min Glucose (74-106) mg/dL Lactic Acid (0.4-2.0) mmol/L Calcium (8.5-10.1) mg/dL Phosphorus (2.6-4.7) mg/dL Magnesium (1.8-2.4) mg/dL Total Bilirubin (0.2-1.0) mg/dL AST (15-37) IU/L ALT (14-63) IU/L Alkaline Phosphatase (46-116) U/L Creatine Kinase (26-308) U/L Troponin I (0.000-0.056) ng/mL C-Reactive Protein (0.00-0.90) mg/dL B-Natriuretic Peptide (<100) PG/ML Total Protein (6.4-8.2) g/dL Albumin (3.4-5.0) g/dL Globulin (2.6-4.0) g/dL Albumin/Globulin Ratio (0.9-1.6) Lipase (73-393) U/L Free T4 (0.76-1.46) ng/dL TSH, Ultra Sensitive (0.36-3.74) uIU/mL Urine Color Urine Appearance Urine pH (5.0-8.0) Ur Specific [place] (1.001-1.035) Urine Protein (NEGATIVE) mg/dL Urine Glucose (UA) (NEGATIVE) mg/dL Urine Ketones (NEGATIVE) mg/dL Urine Occult Blood (NEGATIVE) Urine Nitrite (NEGATIVE) Urine Bilirubin (NEGATIVE) Urine Urobilinogen (<2.0) EU/dL Ur Leukocyte Esterase (NEGATIVE) Urine RBC (0-2/HPF) Urine WBC (0-5/HPF) Ur Epithelial Cells (NONE-FEW) Urine Bacteria (NEGATIVE) Ketones (NEG) Influenza Type A RNA (NEGATIVE) Influenza Type B RNA (NEGATIVE) SARS-CoV-2 RNA (AVINASH) (NEGATIVE) Meds: Medications Generic Name Dose Route Start Last Admin Trade Name Bret PRN Reason Stop Dose Admin Fentanyl Citrate 2,500 mcg/ 250 mls @ 2.5 mls/hr 04/19/21 03:08 04/19/21 06:43 Premix IV 25 mcg/hr TITRATE PRN 2.5 mls/hr Sedation Titration Protocol 25 MCG/HR Heparin Sodium/Sodium Chloride 500 mls @ 17.448 mls/hr 04/19/21 03:15 04/19/21 10:53 Heparin 25,000 Units In 1/2 Ns 500 Ml IV 10 units/kg/hr TITRATE AMI 14.54 mls/hr Titration Protocol 12 UNITS/KG/HR Sodium Chloride 2.5 ml 04/19/21 01:53 Sodium Chloride 0.9% 2.5 Ml Syringe FLUSH ASDIRECTED PRN Keep Vein Open Discontinued Medications Generic Name Dose Route Start Last Admin Trade Name Frealbin PRN Reason Stop Dose Admin Aspirin 300 mg 04/19/21 03:13 04/19/21 03:30 Aspirin 300 Mg Supp RECTAL 04/19/21 03:14 300 mg STAT STA Administration Heparin Sodium (Porcine) 4,000 units 04/19/21 03:13 04/19/21 03:23 Heparin Sodium 5,000 Units/Ml Vial IVPUSH 04/19/21 03:14 4,000 units .BOLUS ONE Administration Norepinephrine Bitartrate Confirm 04/19/21 01:48 04/19/21 06:47 Norepinephr-0.9% Nacl 4 Mg/250 Administered 04/19/21 01:49 Not Given Dose 4 mg in 250 mls @ as directed .ROUTE .STK-MED ONE Sodium Chloride 1,000 mls @ 999 mls/hr 04/19/21 01:53 04/19/21 02:15 Normal Saline IV 04/19/21 02:53 999 mls/hr .Bolus ONE Administration Piperacillin Sod/Tazobactam 100 mls @ 100 mls/hr 04/19/21 01:53 04/19/21 02:14 Sod 4.5 gm/ Sodium Chloride IV 04/19/21 02:52 100 mls/hr ONETIME ONE Administration Fentanyl Citrate Confirm 04/19/21 02:45 04/19/21 02:55 Fentanyl 2500 Mcg In Ns 250 Ml (10 Mcg/Ml) Administered 04/19/21 02:46 Not Given Dose 250 mls @ as directed .ROUTE .STK-MED ONE Sodium Chloride 1,000 mls @ 999 mls/hr 04/19/21 02:53 04/19/21 02:30 Normal Saline IV 04/19/21 03:53 999 mls/hr .Bolus ONE Administration Sodium Chloride 1,000 mls @ 125 mls/hr 04/19/21 02:53 04/19/21 02:58 Normal Saline IV 04/19/21 10:52 125 mls/hr .Bolus ONE Administration Heparin Sodium/Sodium Chloride Confirm 04/19/21 03:20 04/19/21 03:38 Heparin 25,000 Units In 1/2 Ns 500 Ml Administered 04/19/21 03:21 Not Given Dose 500 mls @ as directed .ROUTE .STK-MED ONE Midazolam HCl Confirm 04/19/21 17:21 04/19/21 17:25 Midazolam 5 Mg/Ml Sdv Administered 04/19/21 17:22 2 mg Dose Administration 5 mg .ROUTE .STK-MED ONE Rocuronium [place] 44 mg 04/19/21 07:16 04/19/21 07:52 Rocuronium 50 Mg/5 Ml Vial 0.6 mg/kg (44 mg) 04/19/21 07:17 44 mg IVPUSH Administration NOW ONE Departure - Departure Time of Disposition: 19:37 Sepsis Event Note (ED) - Focused Exam Vital Signs: Vital Signs Pulse Resp BP Pulse Ox 04/19/21 07:58 93 18 100/66 98 - Assessment/Plan Assessment:: Pt transferred via fixed wing to receiving hospital.
--- NOTE | 2021-04-19 02:22 | CR ---
INDICATION: Transient alteration of awareness TECHNIQUE: Chest radiograph 1 view on 2 films COMPARISON: 08/26/2018 FINDINGS: Mediastinum: Previous median sternotomy and coronary artery bypass grafting (CABG) noted. The heart silhouette is normal in size and morphology. Lung: Moderate airspace infiltrates are present in the left lower lung zone with mild ground-glass opacity seen in the right lung. Small pulmonary granulomas are present in the right mid lower lung zone without change. Both apices are partially excluded on the two views submitted. No sign of pleural effusion seen. No pneumothorax is identified. Bone and Soft tissue: Unremarkable for age. IMPRESSION: 1. Moderate airspace infiltrates are present in the left lower lung zone with mild ground-glass opacity seen in the right lung. Dictated by Nic Funez MD @ 04/19/2021 2:21:01 AM Dictated by: Nic Funez MD @ 04/19/2021 02:21:03 (Electronically Signed)
--- NOTE | 2021-04-19 02:39 | CR ---
INDICATION: Post intubation TECHNIQUE: Chest radiograph 1 view COMPARISON: 04/19/2021 FINDINGS: Mediastinum: Previous median sternotomy and coronary artery bypass grafting (CABG) noted. The heart silhouette is normal in size and morphology. The endotracheal tube tip is positioned 4 cm from the kamron. Lung: Bilateral airspace infiltrates are present without interval change. No pneumothorax is identified. Bone and Soft tissue: Unremarkable for age. IMPRESSION: 1. There has been no significant interval changes. Dictated by Nic Funez MD @ 04/19/2021 2:38:30 AM Dictated by: Nic Funez MD @ 04/19/2021 02:38:34 (Electronically Signed)
[2021-04-19] MEDS ORDERED: fentaNYL/Normal Saline 250 ML ONE (02:45)
[2021-04-19 02:47] LABS: BLOOD UREA NITROGEN,BUN 25 mg/dL (7.0-18.0); CARBON DIOXIDE,CO2 22.2 mmol/L (21.0-32.0); CHLORIDE,CL 104 mmol/L (98-107); GLUCOSE RANDOM 242 mg/dL (74-106); LIPASE 18 U/L (73-393); POTASSIUM,K 4.3 mmol/L (3.5-5.1); SODIUM,NA 140 mmol/L (136-148)
[2021-04-19 02:58] LABS: CORONAVIRUS COVID-19 NAA NEGATIVE (NEGATIVE); INFLUENZA A NAA NEGATIVE (NEGATIVE); INFLUENZA B NAA NEGATIVE (NEGATIVE)
[2021-04-19] MEDS ORDERED: fentaNYL/Normal Saline 2,500 MCG in Premix Bag 1 BAG IV PRN (03:08)
[2021-04-19] MEDS ORDERED: Aspirin 300 MG Supp RECTAL STA (03:13)
[2021-04-19] MEDS ORDERED: Heparin Sodium 5,000 Units/ML Vial IVPUSH ONE (03:13)
[2021-04-19] MEDS ORDERED: Heparin Sodium/0.45% NaCl 500 ML IV SCH (03:15)
--- NOTE | 2021-04-19 03:16 | CR ---
INDICATION: Central line placement TECHNIQUE: Chest radiograph 1 view COMPARISON: 04/19/2021 FINDINGS: Mediastinum: Previous median sternotomy and coronary artery bypass grafting (CABG) noted. The heart silhouette is normal in size and morphology. The endotracheal tube tip is positioned 4.5 cm from the kamron. Left IJ line has been placed with the tip at the innominate vein. Lung: Moderate bilateral airspace infiltrates are noted without interval change. No pneumothorax is identified. Bone and Soft tissue: Unremarkable for age. IMPRESSION: 1. Left IJ line has been placed with the tip at the innominate vein. Dictated by Nic Funez MD @ 04/19/2021 3:14:28 AM Dictated by: Nic Funez MD @ 04/19/2021 03:14:35 (Electronically Signed)
[2021-04-19] MEDS ORDERED: Heparin Sodium/0.45% NaCl 500 ML ONE (03:20)
[2021-04-19 05:12] LABS: BLOOD UREA NITROGEN,BUN 24 mg/dL (7.0-18.0); CARBON DIOXIDE,CO2 22.4 mmol/L (21.0-32.0); CHLORIDE,CL 108 mmol/L (98-107); GLUCOSE RANDOM 189 mg/dL (74-106); POTASSIUM,K 4.4 mmol/L (3.5-5.1); SODIUM,NA 141 mmol/L (136-148)
[2021-04-19] MEDS ORDERED: Etomidate 2 MG/ML 20 ML SDV IVPUSH ONE (07:15)
[2021-04-19] MEDS ORDERED: Rocuronium 50 MG/5 ML Vial ONE (07:15)
[2021-04-19] MEDS ORDERED: Rocuronium 50 MG/5 ML Vial IVPUSH ONE (07:16)
[2021-04-19 07:59] VITALS: BP 100/66; PULSE 93
[2021-04-19 10:23] LABS: BLOOD UREA NITROGEN,BUN 29 mg/dL (7.0-18.0); CHLORIDE,CL 109 mmol/L (98-107); GLUCOSE RANDOM 157 mg/dL (74-106); POTASSIUM,K 5.2 mmol/L (3.5-5.1); SODIUM,NA 140 mmol/L (136-148)
[2021-04-19 16:55] LABS: BLOOD UREA NITROGEN,BUN 31 mg/dL (7.0-18.0); CARBON DIOXIDE,CO2 19.3 mmol/L (21.0-32.0); CHLORIDE,CL 109 mmol/L (98-107); GLUCOSE RANDOM 118 mg/dL (74-106); POTASSIUM,K 5.2 mmol/L (3.5-5.1); SODIUM,NA 140 mmol/L (136-148)
[2021-04-19] MEDS ORDERED: Midazolam 5 MG/ML SDV ONE (17:21)
[2021-04-20] MEDS ORDERED: Midazolam 1 MG/ML 2 ML SDV IVPUSH ONE (09:33)
== END 2021-04-19 20:01 ==
LOC: MW.ED 01:45
DX: J96.01 Acute respiratory failure with hypoxia (principal); J96.02 Acute respiratory failure with hypercapnia; I21.9 Acute myocardial infarction, unspecified; E11.9 Type 2 diabetes mellitus without complications; E03.9 Hypothyroidism, unspecified; I25.10 Atherosclerotic heart disease of native coronary artery without angina pectoris; E78.00 Pure hypercholesterolemia, unspecified; I44.7 Left bundle-branch block, unspecified; Z95.1 Presence of aortocoronary bypass graft; Z79.84 Long term (current) use of oral hypoglycemic drugs; Z79.82 Long term (current) use of aspirin; Z79.899 Other long term (current) drug therapy; Z20.822 Contact with and (suspected) exposure to COVID-19
CPT/HCPCS: 0240U; 31500; 36415; 36556; 36600; 51702; 71045; 80048; 80053; 81001; 82009; 82550; 82803; 83605; 83690; 83735; 83880; 84100; 84439; 84443; 84484; 85025; 85610; 85730; 86140; 87040; 87154; 93005; 96365; 96366; 96367; 96375; 99285; A9270; J1644; J2250; J2543; J3490; J7030; 87077; 87186